=== PATIENT | male | born 1980 | race Caucasian/White ===

== ENCOUNTER 2023-06-29 08:03 | Emergency (ER) | payer OTHER, SELFPAY ==
[2023-06-29] VITALS (55 sets, daily range): BP systolic 122–161; BP diastolic 72–95; PULSE 62–93; RESP 10–24; TEMP 36.5; O2SAT 95–100; BMI 36.3
--- NOTE | 2023-06-29 08:21 | ECG_ITS ---
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
--- NOTE | 2023-06-29 08:21 | XR_ITS ---
The [address] [address] Patient Name: PATRICK ARMENTA MRN: [id number] date: 1980 Sex: M Assigned Patient Location: ER Current Patient Location: ED.MAIN Accession/Order Number: [id number] Exam Date: 06/29/2023 08:27 Report Date: 06/29/2023 08:45 At the request of: ERICK ZIMMERMAN Procedure: XR chest 1V EXAM: XR chest 1V HISTORY: chest pain COMPARISON: None TECHNIQUE: AP view of the chest was obtained with portable technique at 0826 hours. FINDINGS: Heart and mediastinal contours are unremarkable in appearance. No acute infiltrate or consolidations are seen. No obvious pneumothorax. Bony structures appear grossly intact. XR/XR chest 1V IMPRESSION: No acute process seen in the chest. Electronically authenticated by: LUCAS KOCH Date: 06/29/2023 08:45
--- NOTE | 2023-06-29 08:27 | ED.CHESTPAI1 ---
HPI - Chest Pain General Chief Complaint: Chest Pain Stated Complaint: CHEST PAIN Time Seen by Provider: 06/29/23 08:16 Source: patient Mode of arrival: walk-in History of Present Illness HPI narrative: Patient said that he woke suddenly - running late for his child's basketball this morning - and while running around the house to get ready he suddenly developed mid sternal chest pain with tingling down the left arm and some left jaw discomfort. He was also anxious. He said that the pain went away and then came back - this happened twice - since it began around 745am. On arrival to the ED it has resolved. He had some associated nausea but no dizziness or syncope. No shortness of breath. PMHx = HTN. He had a stress test about 5 years ago that was negative. Patient does not smoke. Mother had AMI in her 50s, had 4v CABG and had a stroke in her 50s. Related Data Home Medications Medication Instructions Recorded Confirmed lisinopril 10 mg tablet 10 mg PO DAILY 06/29/23 06/29/23 Allergies Allergy/AdvReac Type Severity Reaction Status Date / Time No Known Drug Allergies Allergy Verified 06/29/23 08:11 Exam Narrative Exam Narrative: Nurses notes and vital signs reviewed and patient is not hypoxic. afebrile General: Well-appearing and in no apparent distress. Skin: Warm, dry, no pallor noted. No rash. Head: Normocephalic, atraumatic. Neck: Supple, non-tender. Cardiovascular: Regular Rate and Rhythm without murmur, gallop or rub. Respiratory: No accessory muscle use or respiratory distress. Lungs are clear to auscultation, no wheezing, rales or rhonchi Chest Wall: no tenderness,. crepitus or subcutaneous emphysema Musculoskeletal: normal ROM, no calf or popliteal tenderness, no lower extremity edema/swelling GI: Abdomen is soft, non-distended. Normal bowel sounds. No tenderness to palpation. No rebound, guarding, or rigidity noted. Neurological: A&O x4. No cranial nerve dysfunction observed. No truncal ataxia. Moves all extremities. Sensation intact. Psychiatric: Cooperative and interactive. Normal mood and affect. Constitutional Vital Signs, click to edit/add: Last Vital Signs Temp 97.7 F 06/29/23 08:06 Pulse 81 06/29/23 13:01 Resp 18 06/29/23 13:01 BP 128/88 06/29/23 13:01 Pulse Ox 98 06/29/23 13:01 O2 Del Method Room Air 06/29/23 08:06 Course Vital Signs Vital signs: Vital Signs Temperature 97.7 F 06/29/23 08:06 Pulse Rate 68 06/29/23 08:06 Respiratory Rate 18 06/29/23 08:06 Blood Pressure 161/94 H 06/29/23 08:06 Pulse Oximetry 99 06/29/23 08:06 Oxygen Delivery Method Room Air 06/29/23 08:06 Temperature 97.7 F 06/29/23 08:06 Pulse Rate 81 06/29/23 13:01 Respiratory Rate 18 06/29/23 13:01 Blood Pressure 128/88 06/29/23 13:01 Pulse Oximetry 98 06/29/23 13:01 Oxygen Delivery Method Room Air 06/29/23 08:06 MDM - Chest Pain MDM Narrative Medical decision making narrative: Patient was placed on disability coordinator and EKG obtained. Blood drawn and sent for evaluation. CXR obtained. Patient was given 324mg aspirin orally. EKG normal. CBC and BMP unremarkable. Troponin and d-dimer negative. CXR without worrisome pathology. Call placed to Dr Coats to discuss the patient's case. He was made aware of the patient's negative first troponin and also of the patient's elevated 2nd troponin. Results and diagnosis discussed with the patient and he was given options for transfer - he prefers the closest facility - call placed to [facility] to discuss case with [place] [facility] He remains free of chest pain. I spoke with Dr Gillespie, who wanted me to speak with the senior vice president and chief information officer interventionalist before accepting the admission due to the patient's age and likely need for cardiac cath. I spoke with Dr Beverly and he approved transfer [place] [facility] and was made aware of Dr Gillespie's concerns. Patient accepted to [facility]. He is stable for transfer. Differential Diagnosis Differential diagnosis: Likely pneumothorax, stable angina, unstable angina pectoris, atypical chest pain, st elevation myocardial infarction, costochondritis, chest pain and biliary colic Medical Records Data Attestation: I reviewed the patient's medical records. Lab Data Attestation: I reviewed the patient's lab results. Labs: Lab Results 01/15/24 01/15/24 Range/Units 08:12 11:22 WBC 9.4 (4.0-11.0) 10^3/uL RBC 5.61 (4.70-6.10) 10^6/uL Hgb 16.4 (14.0-18.0) g/dL Hct 48.8 (42.0-54.0) % MCV 87.0 (80.0-94.0) fL MCH 29.2 (25.9-34.0) pg MCHC 33.6 (29.9-35.2) g/dL RDW 13.1 (11.0-15.0) % Plt Count 245 (150-450) 10^3/uL MPV 11.6 (9.5-13.5) fL Neut % (Auto) 39.2 L (43.0-75.0) % Lymph % (Auto) 41.7 (20.5-60.0) % Pope % (Auto) 12.7 H (1.7-12.0) % Eos % (Auto) 4.3 (0.9-7.0) % Baso % (Auto) 1.0 (0.2-2.0) % Neut # (Auto) 3.7 (1.4-6.5) 10^3/uL Lymph # (Auto) 3.9 H (1.2-3.8) 10^3/uL Pope # (Auto) 1.2 H (0.3-0.8) 10^3/uL Eos # (Auto) 0.4 (0.0-0.7) 10^3/uL Baso # (Auto) 0.1 (0.0-0.1) 10^3/uL Abs Immat Gran (auto) 0.10 H (0.00-0.03) 10^3/uL Imm/Tot Granulo (auto) 1.1 H (0.0-0.5) % PT 9.9 (9.0-11.6) sec INR 0.93 APTT 25.3 (22.3-36.2) sec D-Dimer 0.24 (<=0.59) mg/L FEU Sodium 139 (136-145) mmol/L Potassium 3.7 (3.5-5.1) mmol/L Chloride 103 (98-107) mmol/L Carbon Dioxide 27.8 (21.0-32.0) mmol/L Anion Gap 11.9 BUN 14.0 (7.0-18.0) mg/dL Creatinine 1.04 (0.70-1.30) mg/dL Est GFR ( Amer) >60 (>=60) Est GFR (Non-Af Amer) >60 (>=60) BUN/Creatinine Ratio 13.5 Glucose 132 H (74-106) mg/dL Calcium 9.0 (8.5-10.1) mg/dL Troponin I High Sens 9.4 285.7 H* (4.0-76.1) pg/mL Imaging Data Chest x-ray: Attestation: I have reviewed the pertinent imaging results. Radiologist's impression: ITS Impressions Chest X-Ray 06/29/23 08:21 IMPRESSION: No acute process seen in the chest. Electronically authenticated by: LUCAS KOCH Date: 06/29/2023 08:45 ECG Data Attestation: I personally reviewed and interpreted this ECG as follows: Interpretation: EKG interpretation: Emergency Department physician interpretation. Normal sinus rhythm at 67bpm. Normal axis, normal intervals and no ST segment elevation or depression. Normal EKG. Critical Care Time Critical Care Time Critical Care Time: Yes Total Critical Care Time: 75 Attestation: Critical Care Time: 75 minutes, critical care time is separate from any procedures that are performed. The following was considered in the determination of critical care but not limited to the level medical decision-making, intensive cardiac and/or respiratory monitor, frequent vital sign monitoring, evaluation of laboratory studies, evaluation of a radiographic studies, oxygen monitoring and constant monitoring. Discharge Plan Discharge Chief Complaint: Chest Pain Clinical Impression: Acute non-ST elevation myocardial infarction (NSTEMI), Chest pain Patient Disposition: [facility] Time of Disposition Decision: 12:33 Discharge Location: [facility]
[2023-06-29] MEDS: ASPIRIN 81 MG TAB.CHEW 324 MG PO (08:37)
[2023-06-29 08:42] LABS: Basophils Absolute Auto 0.1 10^3/uL (0.0-0.1); Eosinophils Absolute Auto 0.4 10^3/uL (0.0-0.7); Eosinophils Percent Auto 4.3 % (0.9-7.0); Hematocrit 48.8 % (42.0-54.0); Hemoglobin 16.4 g/dL (14.0-18.0); Immature Granulocytes Pct Auto 1.1 % (0.0-0.5); Lymphocytes Absolute Auto 3.9 10^3/uL (1.2-3.8); Lymphocytes Percent Auto 41.7 % (20.5-60.0); Mean Corpuscular HGB Conc 33.6 g/dL (29.9-35.2); Mean Corpuscular Hemoglobin 29.2 pg (25.9-34.0); Mean Platelet Volume 11.6 fL (9.5-13.5); Monocytes Absolute Auto 1.2 10^3/uL (0.3-0.8); Monocytes Percent Auto 12.7 % (1.7-12.0); Neutrophils Absolute Auto 3.7 10^3/uL (1.4-6.5); Neutrophils Percent Auto 39.2 % (43.0-75.0); Platelet Count 245 10^3/uL (150-450); Red Blood Count 5.61 10^6/uL (4.70-6.10); Red Cell Distribution Width 13.1 % (11.0-15.0); White Blood Count 9.4 10^3/uL (4.0-11.0)
[2023-06-29 09:01] LABS: D Dimer 0.24 mg/L FEU (<=0.59)
[2023-06-29 09:07] LABS: Anion Gap 11.9; BUN Creatinine Ratio 13.5; Carbon Dioxide 27.8 mmol/L (21.0-32.0); Chloride 103 mmol/L (98-107); Estimated GFR (African America >60 (>=60); Estimated GFR (Non-African Ame >60 (>=60); Glucose 132 mg/dL (74-106); Potassium 3.7 mmol/L (3.5-5.1); Sodium 139 mmol/L (136-145); Troponin I High Sensitivity 9.4 pg/mL (4.0-76.1)
[2023-06-29 12:23] LABS: Troponin I High Sensitivity 285.7 pg/mL (4.0-76.1)
[2023-06-29 12:45] LABS: INR 0.93; Partial Thromboplastin Time 25.3 sec (22.3-36.2); Prothrombin Time 9.9 sec (9.0-11.6)
[2023-06-29] MEDS: HEPARIN SODIUM (PORCINE) 5,000 UNIT/ML VIAL 4000 UNIT IV (12:52)
[2023-06-29] MEDS: HEPARIN SODIUM,PORCINE/D5W 25,000 UNIT/500 ML IV.SOLN 20 UNIT IV (12:53)
[2023-06-29 14:39] LABS: Troponin I High Sensitivity 252.5 pg/mL (4.0-76.1)
== END 2023-06-29 15:31 | disposition short-term general hospital (02) ==
PROVIDERS: Emergency Provider Emergency Medicine; PCP Family Medicine
DX: I21.4 Non-ST elevation (NSTEMI) myocardial infarction (principal); R07.9 Chest pain, unspecified; I10 Essential (primary) hypertension; Z79.899 Other long term (current) drug therapy
CPT/HCPCS: 36415; 71045; 80048; 84484; 85025; 85378; 85610; 85730; 93005; 96374; 99291; 99292; J1644

== ENCOUNTER 2023-10-21 10:15 | Outpatient (OUT) | payer OTHER, SELFPAY ==
--- OUTSIDE RECORDS SUMMARY | 2023-10-21 10:39 | XMS_ITS | CCD ---
Author Organization [facility] Care Team Providers Care Supervisor [employer] Department Name Role Phone MD Eloise Dubois Attending Provider [phone] NON STAFF Primary Care Provider Unavailabl e DO Rajeev Gray Attending Provider MARCO LISA Admitting Unavailable MARCO LISA Attending Unavailable DR Haider Newton Consulting Unavailable DR BENIGNO COATS Primary Care Unavailable MARCO LISA Consulting Unavailable MD Benigno Coats Primary Care Provider [phone] Rajeev Gray Unavailable Eloise Dubois Unavailable Denis Allen Unavailable MD Benigno Coats Primary Care Provider MD Denis Allen Attending Provider MD Benigno Coats Primary Care Provider DO Pillo Avila Admit Provider DO Pillo Avila Attending Provider VICTORIA Knight Other Provider Unavailable MD Jayce Beverly Other Provider MD Narendra Hassan Other Provider [phone] MD Hailey Russell Other Provider Hailey Russell Unavailable Benigno Coats MD Primary Care Provider Benigno Coats Primary Care Unavailable Denis Allen Admitting Unavailable Denis Allen Attending Unavailable Benigno Coats Primary Care Unavailable Hailey Russell Admitting Unavailable Hailey Russell Attending Unavailable Ita Knight Consulting Unavailable Benigno Coats Primary Care Unavailable Pillo Avila Admitting Unavailable Pillo Avila Attending Unavailable Jayce Beverly Consulting Unavailable Narendra Hassan Consulting Hailey Tabor Consulting Unavailable Medications Current Medications Medication Drug Class(es) Dates Sig (Normalized) Sig (Original) 24 hr metoprolol succinate 25 mg extended release oral tablet (4 sources) beta-Adrenergic Young Start: 06-30-2023 take 25 mg by mouth once daily Metoprolol Succinate Active 25 MG PO Daily June 30, 2023 12:00am take 1 tablet by ruddy th every twelve hours Metoprolol Tartrate 25 MG 1 tablet with food Orally Twice a day for 90 days Active Completed/Discontinued Medications Medication Drug Class(es) Dates Sig (Normalized) Sig (Original) amLODIPine 5 mg oral tablet (2 sources) Dihydropyridine Calcium Channel Young Start: 09-04-2023 take 1 tablet by mouth once daily amLODIPine (NORVASC) 5 mg tablet Take 1 tablet by mouth once daily. 90 tablet 3 09/04/2023 Active Comment on above: Take 1 tablet by ruddy th once daily. aspirin 81 mg oral tablet (8 sources) Platelet Aggregation Inhibitor, Nonsteroidal Anti-inflammatory Drug Start: 09-04-2023 take 1 capsule by mouth once daily aspirin 81 mg cap Take 81 mg by mouth once daily. 90 capsule 3 09/04/2023 Active Start: 06-30-2023 take 81 mg by mouth once daily Aspirin Active 81 MG PO Daily June 30, 2023 12:00am Comment on above: Take 81 mg by mouth once daily. atorvastatin 80 mg oral tablet (8 sources) HMG-CoA Reductase Inhibitor Start: take 1 tablet by mouth once daily atorvastatin (LIPITOR) 80 mg tablet Take 1 tablet by mouth once daily. 90 tablet 3 09/04/2023 Active Start: 06-30-2023 take 80 mg by mouth once daily in the evening Atorvastatin Active 80 MG PO Every evening June 30, 2023 12:00am Comment on above: Take 1 tablet by ruddy th once daily. clopidogrel 75 mg oral tablet (8 sources) P2Y12 Platelet Inhibitor Start: 09-04-2023 take 1 tablet by mouth once daily clopidogrel (PLAVIX) 75 mg tablet Take 1 tablet by mouth once daily. 90 tablet 3 09/04/2023 Active Start: 06-30-2023 take 1 tablet by ruddy th once daily Clopidogrel (Plavix) 75 mg tablet Active 75 MG PO Daily June 30, 2023 12:00am Comment on above: Take 1 tablet by ruddy once daily. 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 90 capsule 3 09/04/2023 Active Comment on above: Take 1 capsule by mo [facility] once daily. Ibuprofen (10 sources) Nonsteroidal Anti-inflammatory Drug Ibuprofen PRN Not-Taking/PRN Ibuprofen PRN Ac tive 24 hr isosorbide mononitrate 60 mg extended release oral tablet (7 sources) Nitrate Vasodilator Start: 09-04-2023 take 1 tablet by mouth once daily isosorbide mononitrate ER (IMDUR) 60 mg 24 hr tablet Take 1 tablet by mouth once daily. 90 tablet 3 09/04/2023 Active Start: 07-02-2023 take 1 tablet by ruddy th every twenty-four hours Isosorbide Mononitrate ER 30 MG 1 tablet in the morning Orally Once a day for 30 days Jun, Active take 1 tablet by ruddy th every twenty-four hours Isosorbide Mononitrate ER 60 MG 1 tablet in the morning Orally Once a day for 90 days Active Comment on above: Take 1 tablet by ruddy once daily. lisinopril 10 mg oral tablet (13 sources) Angiotensin Converting Enzyme Inhibitor Start: 09-04-2023 take 1 tablet by mouth once daily lisinopril (ZESTRIL) 10 mg tablet Take 1 tablet by mouth once daily. 90 tablet 3 09/04/2023 Active Start: 06-29-2023 take 10 mg by mouth at bedtime Lisinopril Active 10 MG PO Bedtime June 29, 2023 12:00am Comment on above: Take 1 tablet by ruddy once daily. nitroglycerin 0.4 mg sublingual tablet (8 sources) Nitrate Vasodilator Start: 09-04-2023 nitroglycerin sublingual (NITROQUICK) 0.4 mg SL tablet Dissolve 1 tablet under the tongue every 5 minutes as needed for chest pain. 25 tablet 5 09/04/2023 Active Start: 06-30-2023 Nitroglycerin Active 0.4 MG SUBLINGUAL Q5M June 30, 2023 12:00am Nitroglycerin 0. 4 MG as directed Sublingual as needed for chest pain Active Comment on above: Dissolve 1 tablet un chace the tongue every 5 minutes as needed for chest pain. triamcinolone acetonide 40 mg/ml injectable suspension (20 sources) Corticosteroid Start: 02-19-2023 Kenalog-40 Feb, 40 mg Start: 05-21-2022 Kenalog-40 May, 30 mg Start: 04-17-2020 Kenalog -40 mg Apr, 40 mg Problems Active Problems Problem Classification Problem Date Documented Da te Episodic/Chronic Acute myocardial infarction (9 sources) Myocardial infarction; Translations: [Non-ST elevation (NSTEMI) myocardial infarction] Onset: 06-29-2023 06-29-2023 Chronic Coronary atherosclerosis and other heart disease (8 sources) Coronary arteriosclerosis; Translations: [Atherosclerotic heart disease of anvik coronary artery with other forms of angina pectoris] Onset: 07-20-2023 07-20-2023 Chronic Disorders of lipid metabolism (6 sources) Hypercholesterolemia ; Translations: [Pure hypercholesterolemia , unspecified] Onset: 06-29-2023 06-30-2023 Chronic E Codes: Natural/environment (1 source) Overexertion from prolonged static or awkward postures, initial encounter; Translations: [OVEREXERT PROLNG STAT/AWK PST INIT] Onset: 05-29-2022 Episodic Essential hypertension (6 sources) Hypertensive disorder; Translations: [Essential (primary) hypertension] Onset: 06-29-2023 06-30-2023 Chronic Fracture of lower limb (4 sources) Displaced fracture of medial malleolus of left tibia, initial encounter for closed fracture; Translations: [Displaced bimalleolar fracture of left lower leg, initial encounter for closed fracture] Onset: 05-29-2022 Episodic Osteoarthritis (20 sources) Osteoarthritis of right knee joint; Translations: [Unilateral primary osteoarthritis, right knee] Chronic Other aftercare (1 source) Encounter for other specified aftercare; Translations: [Encounter for other specified aftercare] Onset: 09-07-2023 Episodic Other bone disease and musculoskeletal deformities (10 sources) Progressive avascular necrosis of lunate; Translations: [Kienbock's disease of adults] Chronic Other bone disease and musculoskeletal deformities (1 source) Kienbock's disease of adults Chronic Other non-traumatic joint disorders (3 sources) Pain in left ankle and joints of left foot; Translations: [PAIN IN LEFT ANKLE] Onset: 05-27-2022 Episodic Other non-traumatic joint disorders (1 source) Pain in left wrist Episodic Other non-traumatic joint disorders (1 source) Pain in right knee Episodic Other nutritional; endocrine; and metabolic disorders (3 sources) Obesity caused by energy imbalance; Translations: [Other obesity due to excess calories] Onset: 07-20-2023 07-20-2023 Chronic Residual codes; unclassified (3 sources) FH: premature coronary heart disease; Translations: [Family history of ischemic heart disease and other diseases of the circulatory system] Onset: 07-20-2023 07-20-2023 Episodic Unclassified (1 source) Unilateral primary osteoarthritis, right knee; Translations: [Unilateral primary osteoarthritis, right knee] Onset: 02-19-2023 Past or Other Problems Problem Classification Problem Date Documented Da te Episodic/Chronic Unclassified (2 sources) Myocardial infarction with coronary microvascular dysfunction I21.B Results Test Name Value Interpretation Reference Range Facility [facility] 09-04-2023 [facility] Letter Text Normal [facility] Maria Dolores 08-26-2023 EDI Telephone (JAYNA) ----- ADAM OSWALD ([id number]) 1980 M Date Time Provider Department 08/26/23 PILLO MOJICA During your visit today, we recorded the following information about you: uGillermina Reynoso 08/26/2023 2:35 PM Signed Call received from pt who called to report his medications had been marked as discontinued. Mr. Oswald informed he is in need of Rx refills. Upon further review when charts were , medications were not listed, INS information is missing. Spoke to Colette Lowry who will send message to HIM re: chart. Pt has jacklyn slot on hold w/ Dr. Mojica on 10/25 @ 10 am for 3 mo FU. 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] 07/20/2023 NSTEMI (non-ST elevated myocardial infarction) *07/20/2023 Primary hypertension [I10] 07/20/2023 Pure hypercholesterolemia [E78.00] 07/20/2023 Family history of early CAD [Z82.49] 07/20/2023 Class 2 obesity due to excess calories with bod*07/20/2023 Encounter Status:Closed by GUILLERMINA REYNOSO on 08/26/23 [facility] CNOVon 07-20-2023 CNOV Office Visit (CATHMN ) ----- ADAM OSWALD ([id number]) 1980 M Date Time Provider Department 07/20/23 8:30 AM PILLO MOJICA During your visit today, we recorded the following information about you: Pulse Blood pressure Weight Height 69/minute 129/73 115.5 kg 1.803 m Pillo Mojica MD 08/05/2023 2:22 PM Addendum [facility] [place] Charlee Rachel Department of Cardiovascular Medicine SECTION OF INTERVENTIONAL CARDIOLOGY OUTPATIENT VISIT DATE July 20, 2023 OUTPATIENT VISIT TYPE NEW PRIMARY CARE PHYSICIAN: Benigno Coats MD [address] [place] [phone] REFERRING PHYSICIAN: SELF CHIEF COMPLAINT: 2nd opinion Establish care HISTORY OF PRESENT ILLNESS: Mr. Oswald is a 42 year old male who presents today with chest pain, NSTEMI (MINOCA), presumptive diagnosis of coronary vasospasm. CRFs: lipids, HTN, FHx. 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 06/29/2023 - developed chest pain radiating to left arm after awakening in morning, lasting 2-3 minutes, then recurred multiple times over that morning. In ED, ECG unremarkable. hsTnI dominguez from 9.4 to 286 06/30/2013 - Echocardiogram at [facility]SH - LVEF 50-55%, normal wall motion, normal valves. 06/30/2023 - Cardiac catheterization at OSH (by my review of images): LM - short LAD - mild proximal ~20-30% stenosis LCX - mild irregularities RCA - dominant, mild irregularities LV - focal mild apical hypokinesia Given diagnosis of MINOCA presumably due to coronary spasm vs possible coronary thrombus. After hospital discharge, had labile BP and recurrent chest pain in morning. Medications adjusted, Imdur started at 30 mg daily, escalated to 90 mg daily. Amlodipine 5 mg started last week. Has had 7-8 episodes since home, always in morning between 4 am (awakens him from sleep) to 8 am, relieved promptly with SL TNG (within 1 minute). Has not had any episodes with physical activity - carrying groceries, walking on treadmill (1 mile over 20 minutes). Had not been exercising regularly. No caffeine, following diet. Taking Imdur at 4-6 am, metoprolol between 8-9 am and evening, lisinopril 6-7 pm, amlodipine qhs. BP running 100-115 in morning, 120-130 mm Hg in afternoon, 140-160s mm Hg in late afternoon/early evening. NURSING INTAKE: PMHX Myocardial infarction, HTN, HLP, FH of CAD , CARLO -oral appliance, GERD, h/o chewing tobacco No outside images Pt reports having a stress test @ 5 years ago due to heart aching Stress test negative He was placed on BP meds and those symptoms subsided 09/22/22 He reports he did not have a stress test at [facility] which is in his electronic records Stress echo Stress Echo 09/22/2022 Indication CP Summary This was a normal exercise stress test without evidence of stress induced ischemia. Prognosis is suggested to be good from this test ( functional capacity >/= 10 METs ). 06/29/2023 He woke up with chest pain- like ache with some SOB It subsided with rest but later reoccurred and radiated to left arm and face He presented to [facility] ED where it had subsided But reoccurred Per pt Troponin 285 max He was transferred to [facility] and underwent coronary angiogram Told 1 20% area in LAD He was told either a clot but more likely spasm He was placed on ASA, Plavix, NTG Sl, Imdur, toprol XL and Lipitor He had 1 episode prior to discharge ECG was normal Pain with relieved with NTG He comes here to get another opinion and to establish care and for evaluation After discharge he has noted HTN His Imdur and metoprolol were increased and Amlodipine was added He has had 8 episodes of chest pain since discharged usually occurring 4AM-8:30 AM has awakened him but most, occurs 5 minutes after walking He has started to exercise with no symptoms and is to start cardiac rehab He notes a little SOB and diaphoresis with these episodes He notes quick chest fluttering He denies lightheadness, syncope, CVA or TIa He denies asthma,a COPD He monitors hist BP since meds increased and running 105/55 to once after exercise 168/98 04/02/23 Chol 164 Tri 158 HDL 41 LDL 103 Diet / Nutrition: Heart healthy since the event Low Na 2000 mg salt Weight: decreased 12 lbs since Exercise: Walking 1 mile 5-7 days week PAST MEDICAL HISTORY Diagnosis Date Family history of early CAD HTN (hypertension) 2019 Mixed hyperlipidemia 06/2022 Myocardial infarction (HCC) 06/29/2023 CARLO (obstructive sleep apnea) oral appliance Past history of chewing tobacco use PAST SURGICAL HISTORY Procedure Laterality Date APPENDECTOMY SOCIAL HISTORY Social History Tobacco Use Smoking status: Never Smokeless tobacco: Former Types: Chew Quit date: 2002 Substance Use Topics Alcohol use: Yes Comment: 1-2 times monoth 3-6 drink (more content not included)... Normal [facility] A1C with Estimated Average G jocelyne 06-30-2023 Glucose [Mass/Vol] 117 mg/dL Normal [facility] Comment on above: Order Comment: DRAW ALL LABS AT 0600 PER VICTORIA CARRION Result Comment: PERF ORMED BY: [place] [address] PATHOLOGIST RAPID OUTSOLE STITCHER ANATOLY PARMAR M.D. Performed By: #### P TT, PT, CBC #### [facility] [address] HbA1c (Bld) [Mass fraction] 5.7 % High 4.3-5.6 [facility] Comment on above: Order Comment: DRAW ALL LABS AT 0600 PER VICTORIA CARRION Result Comment: Incr eased risk for diabetes: 5.7 - 6.4 diabetes: >6.4 glycemic control for adults with diabetes: <7.0 Performed By: #### P TT, PT, CBC #### [facility] [address] Activated partial thrombopla stin time (aPTT) in platelet poor plasma by coagulation aOrdered By: Pillo Avila on 06-30-2023 aPTT Coag (PPP) [Time] 48.1 s 25.1-36.5 [facility] Comment on above: A hematocrit value g reater than 55% may lead to inaccurate results in coagulation testing. Patients having hematocrit values >55% require a special collection tube for coagulation studies. Please contact the laboratory at [phone] for redraw instructions. Basophils Auto (Bld) [#/Vol] Ordered By: Pillo Avila on 06-30-2023 Basophils (Bld) [#/Vol] 0.0 10*3/uL 0.0-0.2 [facility] Basophils/100 WBC Auto (Bld) Ordered By: Pillo Avila on 06-30-2023 Basophils/100 WBC (Bld) 0.7 % . [facility] Blood Urea Nitrogenon 2023 Urea nitrogen [Mass/Vol] 16 mg/dL Normal 7-25 [facility] Comment on above: Performed By: #### P TT, PT, CBC #### [facility] [address] [place] [address] Carbon dioxide, total [Moles /volume] in Serum or PlasmaOrdered By: Hailey Russell on 06-30-2023 CO2 [Moles/Vol] 24.6 mmol/L 21.0-31.0 [facility] Chloride [Moles/volume] in S juaquin or PlasmaOrdered By: Hailey Russell on 06-30-2023 Chloride [Moles/Vol] 105 mmol/L 98-107 [facility] Cholesterol [Mass/volume] in Serum or PlasmaOrdered By: Pillo Avila on 06-30-2023 Cholesterol [Mass/Vol] 191 mg/dL 140-200 [facility] Comment on above: Chol less than 200 m g/dl low riskChol 201-239 mg/dl borderline riskChol 240 mg/dl and greater high risk Cholesterol in LDL Calc [Mas s/Vol]Ordered By: Pillo Avila on 06-30-2023 Cholesterol in LDL [Mass/Vol] 84 mg/dL 0-100 [facility] Comment on above: LDL ATP III CLASSIFI CATIONLDL less than 100 mg/dL OptimalLDL 100-129 mg/dL Near or above optimalLDL 130-159 mg/dL Borderline highLDL 160-189 mg/dL HighLDL greater than 189 mg/dL Very high Cholesterol in VLDL Calc [Ma ss/Vol]Ordered By: Pillo Avila on 06-30-2023 Cholesterol in VLDL [Mass/Vol] 76 mg/dL [facility] Complete Blood Count Auto Di ffon 06-30-2023 Basophils (Bld) [#/Vol] 0.0 10*3/uL Normal 0.0-0.2 [facility] Comment on above: Order Comment: DRAW ALL LABS AT 0600 PER VICTORIA CARRION Result Comment: PERF ORMED BY: [place] [address] PATHOLOGIST RAPID OUTSOLE STITCHER ANATOLY PARMAR M.D. Performed By: #### C BC, PTT, PT #### [facility] [address] [place] [address] [place] Basophils/100 WBC (Bld) 0.7 % Normal . [facility] Comment on above: Order Comment: DRAW ALL LABS AT 0600 PER VICTORIA CARRION Performed By: #### C BC, PTT, PT #### [facility] [address] [place] [address] Eosinophils (Bld) [#/Vol] 0.2 10*3/uL Normal 0.0-0.45 [facility] Comment on above: Order Comment: DRAW ALL LABS AT 0600 PER RN SHEYLA Performed By: #### C BC, PTT, PT #### [facility] [address] Eosinophils/100 WBC (Bld) 3.4 % Normal . [facility] Comment on above: Order Comment: DRAW ALL LABS AT 0600 PER RN SHEYLA Performed By: #### C BC, PTT, PT #### [address] Erythrocyte distribution width (RBC) [Ratio] 13.5 % Normal 12.0-14.8 [facility] Comment on above: Order Comment: DRAW ALL LABS AT 0600 PER RN SHEYLA Performed By: #### C BC, PTT, PT #### [address] Hematocrit (Bld) [Volume fraction] 45.0 % Normal 38.8-50.0 [facility] Comment on above: Order Comment: DRAW ALL LABS AT 0600 PER RN SHEYLA Performed By: #### C BC, PTT, PT #### [address] Hemoglobin (Bld) [Mass/Vol] 15.5 g/dL Normal 13.0-17.0 [facility] Comment on above: Order Comment: DRAW ALL LABS AT 0600 PER RN SHEYLA Performed By: #### C BC, PTT, PT #### [place] [address] [place] Lymphocytes (Bld) [#/Vol] 2.4 10*3/uL Normal 1.00-4.8 [facility] Comment on above: Order Comment: DRAW ALL LABS AT 0600 PER RN SHEYLA Performed By: #### C BC, PTT, PT #### [place] [address] [place] Lymphocytes/100 WBC (Bld) 36.1 % Normal . [facility] Comment on above: Order Comment: DRAW ALL LABS AT 0600 PER RN SHEYLA Performed By: #### C BC, PTT, PT #### [address] MCH (RBC) [Entitic mass] 30.0 pg Normal 27.5-35.2 [facility] Comment on above: Order Comment: DRAW ALL LABS AT 0600 PER RN SHEYLA Performed By: #### C BC, PTT, PT #### [address] MCV (RBC) [Entitic vol] 86.9 fL Normal 83.5-101 [facility] Comment on above: Order Comment: DRAW ALL LABS AT 0600 PER RN SHEYLA Performed By: #### C BC, PTT, PT #### [address] Mean Corpuscular HGB Conc 34.5 g/dL Normal 32.5-35.6 [facility] Comment on above: Order Comment: DRAW ALL LABS AT 0600 PER RN SHEYLA Performed By: #### C BC, PTT, PT #### [address] Monocytes (Bld) [#/Vol] 0.7 10*3/uL Normal 0.0-0.8 [facility] Comment on above: Order Comment: DRAW ALL LABS AT 0600 PER RN SHEYLA Performed By: #### C BC, PTT, PT #### [address] Monocytes/100 WBC (Bld) 10.1 % Normal . [facility] Comment on above: Order Comment: DRAW ALL LABS AT 0600 PER RN SHEYLA Performed By: #### C BC, PTT, PT #### [facility] [address] [place] [address] [place] Neutrophils (Bld) [#/Vol] 3.3 10*3/uL Normal 1.8-7.7 [facility] Comment on above: Order Comment: DRAW ALL LABS AT 0600 PER RN SHEYLA Performed By: #### C BC, PTT, PT #### [address] [place] [address] [place] Neutrophils/100 WBC (Bld) 49.7 % Normal . [facility] Comment on above: Order Comment: DRAW ALL LABS AT 0600 PER RN SHEYLA Performed By: #### C BC, PTT, PT #### [facility] [address] NRBC% 0.3 /100{WBC} Normal 0-0.5 [facility] Comment on above: Order Comment: DRAW ALL LABS AT 0600 PER RN SHEYLA Performed By: #### C BC, PTT, PT #### [facility] [address] Platelet mean volume (Bld) [Entitic vol] 9.7 fL Normal 6.6-10.1 [facility] Comment on above: Order Comment: DRAW ALL LABS AT 0600 PER RN SHEYLA Performed By: #### C BC, PTT, PT #### [place] [address] [place] Platelets (Bld) [#/Vol] 179 10*3/uL Normal 150-450 [facility] Comment on above: Order Comment: DRAW ALL LABS AT 0600 PER RN SHEYLA Performed By: #### C BC, PTT, PT #### [address] RBC (Bld) [#/Vol] 5.17 10*6/uL Normal 3.90-5.60 [facility] Comment on above: Order Comment: DRAW ALL LABS AT 0600 PER RN SHEYLA Performed By: #### C BC, PTT, PT #### [facility] [address] [place] [address] WBC (Bld) [#/Vol] 6.6 10*3/uL Normal 4.1-10.5 [facility] Comment on above: Order Comment: DRAW ALL LABS AT 0600 PER RN SHEYLA Performed By: #### C BC, PTT, PT #### [facility] [address] [place] [address] [place] Creatine Kinaseon 06-30-2023 CK [Catalytic activity/Vol] 48 U/L Normal 30-223 [facility] Comment on above: Performed By: #### P TT, PT, CBC #### [facility] [address] [place] [address] [place] CK [Catalytic activity/Vol] 51 U/L Normal [facility] Comment on above: Performed By: #### H S TROP, CK #### [facility] [address] [id number] [place] Creatine kinase [Enzymatic a ctivity/volume] in Serum or PlasmaOrdered By: Pillo Avila on 06-30-2023 CK [Catalytic activity/Vol] 48 U/L [facility] Creatinineon 06-30-2023 Creatinine [Mass/Vol] 0.95 mg/dL Normal 0.70-1.30 [facility] Comment on above: Performed By: #### P TT, PT, CBC #### [facility] [address] [place] [address] [place] Creatinine Clr Calc Pharmacy 136.39 Normal [facility] Comment on above: Result Comment: PERF ORMED BY: [place] [address] PATHOLOGIST RAPID OUTSOLE STITCHER ANATOLY PARMAR M.D. Performed By: #### P TT, PT, CBC #### [facility] [address] [place] [address] [place] GFR/1.73 sq M.predicted MDRD (S/P/Bld) [Vol rate/Area] mL/min/{1.73_m2} [facility] Comment on above: Performed By: #### P TT, PT, CBC #### [facility] [address] [place] [address] [place] Creatinine [Mass/volume] in Serum or PlasmaOrdered By: Hailey Russell on 06-30-2023 Creatinine [Mass/Vol] 0.95 mg/dL 0.70-1.30 [facility] ECG 12 lead ECGon 06-30-2023 ECG 12 lead ECG [facility] [address] [place] [address] [place] [address] Electrocardiograph Report Signed Patient: Adam Oswald MR#: [id number] 55 : 1980 Acct:[id number] Age/Sex: 42 / M ADM Date: 06/29/23 Loc: 4 Room: [address] [place] [address] Type: DIS IN Attending Dr: Pillo Avila DO Ordering Provider: Pillo Avila DO Date of Service: 06/30/23 ECG/ECG 12 lead ECG: chest pain Copies to: Test Reason : Blood Pressure : / mmHG Vent. Rate : 084 BPM Atrial Rate : 084 BPM P-R Int : 154 ms QRS Dur : 086 ms QT Int : 362 ms P-R-T Axes : -26 066 016 degrees QTc Int : 427 ms Poor data quality, interpretation may be adversely affected Normal sinus rhythm Normal ECG No previous ECGs available Confirmed by HIWOT VARGAS MD ([id number]) on 06/30/2023 6:01:33 PM Referred By: MB Electronically Signed By:HIWOT VARGAS MD Transcribed By: MUS Signed By Hiwot Vargas MD 0 06/30/23 1801 [facility] echo transthoracicon [facility] echo transthoracic [facility] [place] [address] Echocardiogram Signed Patient: Adam Oswald MR#: [id number] 55 : 1980 Acct:[id number] Age/Sex: 42 / M ADM Date: 06/29/23 Loc: Room: [address] [place] [address] Type: DIS IN Attending Dr: Pillo Avila DO Ordering Provider: Hailey Russell MD Date of Service: 06/30/23 [facility] echo transthoracic: NSTEMI Copies to: MD Hiwot Moran MD BSA: 2.5 m2 BP: 146/88 mmHg HR: 77 Reason For Study: NSTEMI History: HTN, HLD, Family History: CAD Interpretation Summary The left ventricular wall motion is normal. The left ventricular size and thickness are normal. Ejection Fraction = 50-55%. The LV ejection fraction is low normal . There is trace mitral regurgitation. There is no comparison study available. Procedure/Quality: A two-dimensional transthoracic echocardiogram with color flow and Doppler was performed. The study was technically good in quality. Left Ventricle: The left ventricular size and thickness are normal. Ejection Fraction = 50-55%. The LV ejection fraction is low normal . The left ventricular wall motion is normal. Left Atrium: The left atrium appears normal in size. Right Atrium: The right atrium appears normal in size. Right Ventricle: The right ventricular size, thickness and function are normal. Aortic Valve: The aortic valve is normal in structure and function. No aortic regurgitation is present. Mitral Valve: The mitral valve is normal in structure and function. There is trace mitral regurgitation. Tricuspid Valve: The tricuspid valve is normal in structure and function. No tricuspid regurgitation. Pulmonic Valve: The pulmonic valve is normal in structure and function. Arteries: The aortic root is normal size. Pericardium/Pleura: No pericardial effusion seen. There is no pleural effusion. IVC/Hepatic Veins: The inferior vena cava is normal in size, with a normal collapsibility index. Measurements with Normals IVSd: 0.77 cm (0.7-1.1 cm)LVIDd: 4.7 cm (3.7-5.4 cm) LVPWd: 0.86 cm (0.7-1.1 cm)LVIDs: 2.9 cm (2.3-3.6 cm) LA dimension: 3.0 cm (2.3-4.0 cm)Ao root diam: 3.3 cm(2.0-3.6 cm) asc Aorta Diam: 3.0 cm(2.1-3.4cm) Doppler with Normals LV V1 max: 104.5 cm/sec (0.7-1.7m/s)MV E max bruce: 66.8 cm/sec(0.8-1.3m/s) MV A max bruce: 77.1 cm/sec(0.0-0.0m/s) MV E/A: 0.87 (<1.5) MMode/2D Measurements Calculations RVDd: 2.7 cm FS: 37.5 % Ao root area: LVOT diam: 1.9 cm TAPSE: 2.1 cm EDV(Teich): 8.4 cm2 LVOT area: 3.0 cm2 RV S Bruce: 100.4 ml 12.4 cm/sec ESV(Teich): 32.5 ml EF(Teich): 67.6 % __ LVLd ap4: 8.1 cm SV(MOD-sp4): LAV(MOD-sp4): LA A2 area: 6.3 cm2 EDV(MOD-sp4): 38.5 ml 17.4 ml 65.9 ml LAV(MOD-sp2): LA A4 area: 8.6 cm2 LVLs ap4: 6.4 cm 10.0 ml LA length (vol): ESV(MOD-sp4): 3.2 cm 27.4 ml LA vol: 14.0 ml EF(MOD-sp4): 58.4 % LA vol index: 5.7 ml/m2 Doppler Measurements Calculations MV dec time: MV max PG: E/E' lat: 5.3 MV dec slope: 0.18 sec 14.0 mmHg E/E' med: 7.7 366.8 cm/sec2 __ Ao V2 max: LV V1 max PG: MR max bruce: TV max P.0 mmHg 126.0 cm/sec 4.4 mmHg 189.4 cm/sec Ao max P.4 mmHgLV V1 mean PG: MR max PG: Ao mean P.3 mmHg 14.4 mmHg 3.0 mmHg LV V1 mean: Ao V2 mean: 72.1 cm/sec 80.3 cm/sec LV V1 VTI: 18.7 cm Ao V2 VTI: 22.3 cm KATIE(I,D): 2.5 cm2 KATIE(V,D): 2.4 cm2 __ TR max bruce: 166.8 cm/sec TR max P.1 mmHg ___ Transcribed By: SCV Performed At: 06/30/23 1410 Signed By: Hiwot Vargas MD 06/30/23 1854 Normal [facility] Electrolyteson 06-30-2023 Anion gap [Moles/Vol] 12.5 mmol/L Normal 6.0-15.0 [facility] Comment on above: Performed By: #### P TT, PT, CBC #### [facility] [address] [place] [address] [place] Chloride [Moles/Vol] 105 mmol/L Normal 98-107 [facility] Comment on above: Performed By: #### P TT, PT, CBC #### [facility] [address] [place] [address] [place] CO2 [Moles/Vol] 24.6 mmol/L Normal 21.0-31.0 [facility] Comment on above: Performed By: #### P TT, PT, CBC #### [facility] [address] [place] [address] [place] Potassium [Moles/Vol] 4.1 mmol/L Normal 3.5-5.1 [facility] Comment on above: Performed By: #### P TT, PT, CBC #### [facility] [address] [place] [address] [place] Sodium [Moles/Vol] 138 mmol/L Normal 136-145 [facility] Comment on above: Performed By: #### P TT, PT, CBC #### [facility] [address] [place] [address] [place] Eosinophils Auto (Bld) [#/Vo l]Ordered By: Pillo Avila on 06-30-2023 Eosinophils (Bld) [#/Vol] 0.2 10*3/uL 0.0-0.45 [facility] Eosinophils/100 WBC Auto (Bl d)Ordered By: Pillo Avila on 06-30-2023 Eosinophils/100 WBC (Bld) 3.4 % . [facility] Erythrocyte distribution wid th Auto (RBC) [Ratio]Ordered By: Pillo Avila on 06-30-2023 Erythrocyte distribution width (RBC) [Ratio] 13.5 % 12.0-14.8 [facility] Glucose mean value [Mass/vol ume] in Blood Estimated from glycated hemoglobinOrdered By: Pillo Avila on 06-30-2023 Average glucose Estimated from glycated hemoglobin (Bld) [Mass/Vol] 117 mg/dL [facility] Hematocrit Auto (Bld) [Volum e fraction]Ordered By: Pillo Avila on 06-30-2023 Hematocrit (Bld) [Volume fraction] 45.0 % 38.8-50.0 [facility] Hemoglobin A1c percentageOrd ered By: Pillo Avila on 06-30-2023 HbA1c (Bld) [Mass fraction] 5.7 % 4.3-5.6 [facility] Comment on above: Increased risk for d iabetes: 5.7 - 6.4diabetes: >6.4glycemic control for adults with diabetes: <7.0 Hemoglobin [Mass/volume] in BloodOrdered By: Pillo Avila on 06-30-2023 Hemoglobin (Bld) [Mass/Vol] 15.5 g/dL 13.0-17.0 [facility] INR in Platelet poor plasma by Coagulation assayOrdered By: Pillo Avila on 06-30-2023 INR Coag (PPP) [Relative time] 1.1 {INR} [facility] Comment on above: INR Therapeutic Rang e A) Pre- and Peroperative OAT started two weeks before surgery. NOT HIP SURGERY: 1.5 - 2.5 HIP SURGERY: 2 - 3B) Primary and secondary prevention of venous THROMBOSIS: 2 - 3C) Active venous thrombosis, pulmonary embolismand prevention of recurrent venous thrombosis: 2 - 3D) Prevention of arterial thromboembolismincluding patients with mechanical heart valves: 3 - 4.5 Leukocytes [#/volume] correc coy for nucleated erythrocytes in Blood by Automated counOrdered By: Pillo Avila on 06-30-2023 WBC corrected for nucl RBC Auto (Bld) [#/Vol] 6.6 10*3/uL 4.1-10.5 [facility] Lipid Panelon 06-30-2023 Cholesterol [Mass/Vol] 191 mg/dL Normal 140-200 [facility] Comment on above: Order Comment: FASTI NG N DRAW ALL LABS AT 0600 PER VICTORIA CARRION Result Comment: Chol less than 200 mg/dl low risk Chol 201-239 mg/dl borderline risk Chol 240 mg/dl and greater high risk Performed By: #### P TT, PT, CBC #### [facility] [address] [place] [id number] [place] Cholesterol in HDL [Mass/Vol] 31 mg/dL Normal 23-92 [facility] Comment on above: Order Comment: FASTI NG N DRAW ALL LABS AT 0600 PER RN SHEYLA Result Comment: HDL CHOL ATP-III CLASSIFICATION Cardiovascular Risk HDL > or equal to 60 mg/dL LOW HDL < 40 mg/dL HIGH Performed By: #### P TT, PT, CBC #### [facility] [address] Cholesterol.total/Chol esterol in HDL [Mass ratio] 6.2 {ratio} Normal <5.0 [facility] Comment on above: Order Comment: FASTI NG N DRAW ALL LABS AT 0600 PER RN SHEYLA Result Comment: PERF ORMED BY: [place] [address] PATHOLOGIST RAPID OUTSOLE STITCHER ANATOLY PARMAR M.D. Performed By: #### P TT, PT, CBC #### [facility] [address] [place] [id number] [facility] LDL Cholesterol,Calculated 84 mg/dL Normal 0-100 [facility] Comment on above: Order Comment: FASTI NG N DRAW ALL LABS AT 0600 PER RN SHEYLA Result Comment: LDL ATP III CLASSIFICATION LDL less than 100 mg/dL Optimal LDL 100-129 mg/dL Near or above optimal LDL 130-159 mg/dL Borderline high LDL 160-189 mg/dL High LDL greater than 189 mg/dL Very high Performed By: #### P TT, PT, CBC #### [facility] [address] [place] [id number] [place] Triglyceride w/Reflex 381 mg/dL High 0-149 [facility] Comment on above: Order Comment: FASTI NG N DRAW ALL LABS AT 0600 PER RN SHEYLA Result Comment: TRIG ATP III CLASSIFICATION TRIG less than 150 mg/dL Normal TRIG 150-199 mg/dL Borderline high TRIG 200-500 mg/dL High TRIG greater than 500 mg/dL Very high Standard traceable to the Center for Disease Conrtrol and Prevention (CDC) test method. Performed By: #### P TT, PT, CBC #### [facility] [address] VLDL CHOLESTEROL 76 mg/dL Normal [facility] Comment on above: Order Comment: SCOTT Flores DRAW ALL LABS AT 0600 PER VICTORIA CARRION Performed By: #### P TT, PT, CBC #### [facility] [address] Lymphocytes Auto (Bld) [#/Vo l]Ordered By: Pillo Avila on 06-30-2023 Lymphocytes (Bld) [#/Vol] 2.4 10*3/uL 1.00-4.8 [facility] Lymphocytes/100 WBC Auto (Bl d)Ordered By: Pillo Avila on 06-30-2023 Lymphocytes/100 WBC (Bld) 36.1 % . [facility] MCH Auto (RBC) [Entitic mass ]Ordered By: Pillo Avila on 06-30-2023 MCH (RBC) [Entitic mass] 30.0 pg 27.5-35.2 [facility] MCHC Auto (RBC) [Mass/Vol]Or dered By: Pillo Avila on 06-30-2023 MCHC (RBC) [Mass/Vol] 34.5 g/dL 32.5-35.6 [facility] MCV Auto (RBC) [Entitic vol] Ordered By: Pillo Avila on 06-30-2023 MCV (RBC) [Entitic vol] 86.9 fL 83.5-101 [facility] Monocytes Auto (Bld) [#/Vol] Ordered By: Pillo Avila on 06-30-2023 Monocytes (Bld) [#/Vol] 0.7 10*3/uL 0.0-0.8 [facility] Monocytes/100 WBC Auto (Bld) Ordered By: Pillo Avila on 06-30-2023 Monocytes/100 WBC (Bld) 10.1 % . [facility] Neutrophils Auto (Bld) [#/Vo l]Ordered By: Pillo Avila on 06-30-2023 Neutrophils (Bld) [#/Vol] 3.3 10*3/uL 1.8-7.7 [facility] Neutrophils/100 WBC Auto (Bl d)Ordered By: Pillo Avila on 06-30-2023 Neutrophils/100 WBC (Bld) 49.7 % . [facility] No Panel InformationOrdered By: Hailey Russell on 06-30-2023 Estimated GFR (CKD-EPI) > 60.0 mL/Min [facility] Creatinine Clearance (Chem 136.39 [facility] Nucleated erythrocytes [Pres ence] in Blood by Automated countOrdered By: Pillo Avila on 06-30-2023 Nucleated RBC Auto Ql (Bld) 0.3 /100{WBC} 0-0.5 [facility] Partial Thromboplastin Timeo n 06-30-2023 aPTT Coag (Bld) [Time] 48.1 s High 25.1-36.5 [facility] Comment on above: Order Comment: DRAW ALL LABS AT 0600 PER VICTORIA CARRION Result Comment: A matocrit value greater than 55% may lead to inaccurate results in coagulation testing. Patients having hematocrit values >55% require a special collection tube for coagulation studies. Please contact the laboratory at [phone] for redraw instructions. PERFORMED BY: [place] [address] PATHOLOGIST RAPID OUTSOLE [employer]ITCHER ANATOLY PARMAR M.D. Performed By: #### P TT, PT, CBC #### [facility] [address] [place] [address] [facility] aPTT Coag (Bld) [Time] 35.7 s Normal 25.1-36.5 [facility] Comment on above: Result Comment: A he matocrit value greater than 55% may lead to inaccurate results in coagulation testing. Patients having hematocrit values >55% require a special collection tube for coagulation studies. Please contact the laboratory at [phone] for redraw instructions. PERFORMED BY: [place] [address] PATHOLOGIST RAPID OUTSOLE STITCHER ANATOLY PARMAR M.D. Performed By: #### P TT, PT, CBC #### [facility] [address] [place], [place] [id number] [facility] Platelet mean volume Auto (B ld) [Entitic vol]Ordered By: Pillo Avila on 06-30-2023 Platelet mean volume (Bld) [Entitic vol] 9.7 fL 6.6-10.1 [facility] Platelets Auto (Bld) [#/Vol] Ordered By: Pillo Avila on 06-30-2023 Platelets (Bld) [#/Vol] 179 10*3/uL 150-450 [facility] Potassium [Moles/volume] in Serum or PlasmaOrdered By: Hailey Russell on 06-30-2023 Potassium [Moles/Vol] 4.1 mmol/L 3.5-5.1 [facility] Prothrombin Time INRon 06-30 INR Coag (PPP) [Relative time] 1.1 {INR} Normal [facility] Comment on above: Order Comment: DRAW ALL LABS AT 0600 PER VICTORIA CARRION Result Comment: INR Therapeutic Range A) Pre- and Peroperative OAT started two weeks before surgery. NOT HIP SURGERY: 1.5 - 2.5 HIP SURGERY: 2 - 3 B) Primary and secondary prevention of venous THROMBOSIS: 2 - 3 C) Active venous thrombosis, pulmonary embolism and prevention of recurrent venous thrombosis: 2 - 3 D) Prevention of arterial thromboembolism including patients with mechanical heart valves: 3 - 4.5 Performed By: #### C BC, PTT, PT #### [facility] [address] [place] [address] [facility] PT Coag (PPP) [Time] 12.3 s Normal 9.0-12.9 [facility] Comment on above: Order Comment: DRAW ALL LABS AT 0600 PER VICTORIA CARRION Result Comment: A he matocrit value greater than 55% may lead to inaccurate results in coagulation testing. Patients having hematocrit values >55% require a special collection tube for coagulation studies. Please contact the laboratory at [phone] for redraw instructions. Performed By: #### C BC, PTT, PT #### [facility] [address] [place] [id number] [facility] Prothrombin time (PT)Ordered By: Pillo Avila on 06-30-2023 PT Coag (PPP) [Time] 12.3 s 9.0-12.9 [facility] Comment on above: A hematocrit value g reater than 55% may lead to inaccurate results in coagulation testing. Patients having hematocrit values >55% require a special collection tube for coagulation studies. Please contact the laboratory at [phone] for redraw instructions. RBC Auto (Bld) [#/Vol]Ordere d By: Pillo Avila on 06-30-2023 RBC (Bld) [#/Vol] 5.17 10*6/uL 3.90-5.60 [facility] Serum or plasma anion gap de terminationOrdered By: Hailey Russell on 06-30-2023 Anion gap [Moles/Vol] 12.5 mmol/L 6.0-15.0 [facility] Serum or plasma high density lipoprotein (HDL) cholesterol measurementOrdered By: Pillo Avila on 06-30-2023 Cholesterol in HDL [Mass/Vol] 31 mg/dL 23-92 [facility] Comment on above: HDL CHOL ATP-III CLA SSIFICATION Cardiovascular RiskHDL > or equal to 60 mg/dL LOWHDL < 40 mg/dL HIGH Serum or plasma total choles terol/high density lipoprotein (HDL) cholesterol mass ratOrdered By: Pillo Avila on 06-30-2023 Cholesterol.total/Chol esterol in HDL [Mass ratio] 6.2 {ratio} <5.0 [facility] Sodium [Moles/volume] in Ser um or PlasmaOrdered By: Hailey Russell on 06-30-2023 Sodium [Moles/Vol] 138 mmol/L 136-145 [facility] Triglyceride [Mass/volume] i n Serum or PlasmaOrdered By: Pillo Avila on 06-30-2023 Triglyceride [Mass/Vol] 381 mg/dL 0-149 [facility] Comment on above: TRIG ATP III CLASSIF ICATIONTRIG less than 150 mg/dL NormalTRIG 150-199 mg/dL Borderline highTRIG 200-500 mg/dL High TRIG greater than 500 mg/dL Very highStandard traceable to the Center for Disease Conrtrol and Prevention (CDC) test method. Troponin I High Sensitivityo n 06-30-2023 Troponin I High Sensitivity 22.8 pg/mL High 0.0-20.0 [facility] Comment on above: Result Comment: PERF ORMED BY: [place] [address] PATHOLOGIST RAPID [employer]SOLE STITCHER ANATOLY PARMAR M.D. Performed By: #### P TT, PT, CBC #### [facility] [address] [place] [address] Troponin I High Sensitivity 35.7 pg/mL High 0.0-20.0 [facility] Comment on above: Result Comment: PERF ORMED BY: [place] [address] PATHOLOGIST RAPID OUTSOLE STITCHER ANATOLY PARMAR M.D. Performed By: #### H S TROP, CK #### [address] Troponin I.cardiac [Mass/vol ume] in Serum or Plasma by Detection limit <= 0.01 ng/Ordered By: Pillo Avila on 06-30-2023 Troponin I.cardiac DL <= 0.01 ng/mL [Mass/Vol] 22.8 pg/mL 0.0-20.0 [facility] Urea nitrogen [Mass/volume] in Serum or PlasmaOrdered By: Hailey Russell on 06-30-2023 Urea nitrogen [Mass/Vol] 16 mg/dL 725 [facility] WBC Auto (Bld) [#/Vol]Ordere d By: Pillo Avila on 06-30-2023 WBC (Bld) [#/Vol] 6.6 10*3/uL 4.1-10.5 [facility] Complete Blood Count Auto Di ffon 06-29-2023 Basophils (Bld) [#/Vol] 0.1 10*3/uL Normal 0.0-0.2 [facility] Comment on above: Result Comment: PERF ORMED BY: [place] [address] PATHOLOGIST RAPID OUTSOLE STITCHER ANATOLY PARMAR M.D. Performed By: #### P TT, PT, CBC #### [facility] [address] [place] [address] [place] Basophils/100 WBC (Bld) 1.0 % Normal . [facility] Comment on above: Performed By: #### P TT, PT, CBC #### [facility] [address] Eosinophils (Bld) [#/Vol] 0.2 10*3/uL Normal 0.0-0.45 [facility] Comment on above: Performed By: #### P TT, PT, CBC #### [facility] [address] [place] [address] [place] Eosinophils/100 WBC (Bld) 2.2 % Normal . [facility] Comment on above: Performed By: #### P TT, PT, CBC #### [address] Erythrocyte distribution width (RBC) [Ratio] 14.0 % Normal 12.0-14.8 [facility] Comment on above: Performed By: #### P TT, PT, CBC #### [address] Hematocrit (Bld) [Volume fraction] 46.1 % Normal 38.8-50.0 [facility] Comment on above: Performed By: #### P TT, PT, CBC #### [address] Hemoglobin (Bld) [Mass/Vol] 16.0 g/dL Normal 13.0-17.0 [facility] Comment on above: Performed By: #### P TT, PT, CBC #### [place] [address] [place] Lymphocytes (Bld) [#/Vol] 2.2 10*3/uL Normal 1.00-4.8 [facility] Comment on above: Performed By: #### P TT, PT, CBC #### [place] [address] [place] Lymphocytes/100 WBC (Bld) 31.3 % Normal . [facility] Comment on above: Performed By: #### P TT, PT, CBC #### [facility] [address] [place] [address] [place] MCH (RBC) [Entitic mass] 30.2 pg Normal 27.5-35.2 [facility] Comment on above: Performed By: #### P TT, PT, CBC #### [address] MCV (RBC) [Entitic vol] 86.8 fL Normal 83.5-101 [facility] Comment on above: Performed By: #### P TT, PT, CBC #### [address] Mean Corpuscular HGB Conc 34.8 g/dL Normal 32.5-35.6 [facility] Comment on above: Performed By: #### P TT, PT, CBC #### [address] Monocytes (Bld) [#/Vol] 0.6 10*3/uL Normal 0.0-0.8 [facility] Comment on above: Performed By: #### P TT, PT, CBC #### [address] Monocytes/100 WBC (Bld) 9.1 % Normal . [facility] Comment on above: Performed By: #### P TT, PT, CBC #### [address] Neutrophils (Bld) [#/Vol] 4.0 10*3/uL Normal 1.8-7.7 [facility] Comment on above: Performed By: #### P TT, PT, CBC #### [address] Neutrophils/100 WBC (Bld) 56.4 % Normal . [facility] Comment on above: Performed By: #### P TT, PT, CBC #### [address] NRBC% 0.2 /100{WBC} Normal 0-0.5 [facility] Comment on above: Performed By: #### P TT, PT, CBC #### [address] Platelet mean volume (Bld) [Entitic vol] 9.9 fL Normal 6.6-10.1 [facility] Comment on above: Performed By: #### P TT, PT, CBC #### [address] Platelets (Bld) [#/Vol] 210 10*3/uL Normal 150-450 [facility] Comment on above: Performed By: #### P TT, PT, CBC #### [address] RBC (Bld) [#/Vol] 5.31 10*6/uL Normal 3.90-5.60 [facility] Comment on above: Performed By: #### P TT, PT, CBC #### [address] WBC (Bld) [#/Vol] 7.1 10*3/uL Normal 4.1-10.5 [facility] Comment on above: Performed By: #### P TT, PT, CBC #### [address] Creatine Kinaseon 06-29-2023 CK [Catalytic activity/Vol] 54 U/L Normal 30-223 [facility] Comment on above: Performed By: #### P TT, PT, CBC #### [address] Partial Thromboplastin Timeo n 06-29-2023 aPTT Coag (Bld) [Time] 32.5 s Normal 25.1-36.5 [facility] Comment on above: Result Comment: A he matocrit value greater than 55% may lead to inaccurate results in coagulation testing. Patients having hematocrit values >55% require a special collection tube for coagulation studies. Please contact the laboratory at [phone] for redraw instructions. PERFORMED BY: [place] [address] PATHOLOGIST RAPID OUTSOLE STITCHER ANATOLY PARMAR M.D. Performed By: #### P TT, PT, CBC #### [place] [id number] [facility] Prothrombin Time INRon 06-29 INR Coag (PPP) [Relative time] 1.0 {INR} Normal [facility] Comment on above: Result Comment: INR Therapeutic Range A) Pre- and Peroperative OAT started two weeks before surgery. NOT HIP SURGERY: 1.5 - 2.5 HIP SURGERY: 2 - 3 B) Primary and secondary prevention of venous THROMBOSIS: 2 - 3 C) Active venous thrombosis, pulmonary embolism and prevention of recurrent venous thrombosis: 2 - 3 D) Prevention of arterial thromboembolism including patients with mechanical heart valves: 3 - 4.5 Performed By: #### P TT, PT, CBC #### [address] PT Coag (PPP) [Time] 11.9 s Normal 9.0-12.9 [facility] Comment on above: Result Comment: A he matocrit value greater than 55% may lead to inaccurate results in coagulation testing. Patients having hematocrit values >55% require a special collection tube for coagulation studies. Please contact the laboratory at [phone] for redraw instructions. Performed By: #### P TT, PT, CBC #### [address] Troponin I High Sensitivityo n 06-29-2023 Troponin I High Sensitivity 88.9 pg/mL Off scale high 0.0-20.0 [facility] Comment on above: Result Comment: Crit ical Result : Called to and read back by: FLAVIA FIGUEROA at: 06/29/2023 19:34:47 by:[id number] PERFORMED BY: [place] [address] PATHOLOGIST RAPID OUTSOLE STITCHER ANATOLY PARMAR M.D. Performed By: #### P TT, PT, CBC #### [address] XR knee RT 2Von 02-19-2023 XR knee RT 2V [facility] [place] [address] [place] [address] XRay Report Signed Patient: Adam Oswald MR#: [id number] 55 : 1980 Acct:[id number] Age/Sex: 42 / M ADM Date: 02/19/23 Loc: [facility] Room: Type: [facility] Attending Dr: Denis Allen MD Copies to: Denis Allen MD Ordering Provider: Denis Allen MD Date of Service: 02/19/23 XR/XR knee RT 2V: Primary osteoarthritis of right knee 2 views RIGHT knee plain film COMPARISON: 04/17/20 HISTORY: RIGHT knee pain for 2 weeks ACUTE FINDINGS: None DEGENERATIVE CHANGE: Similar extensive medial compartment degeneration. Superior patellar enthesophyte. Mild degenerative subluxation. SOFT TISSUE FINDINGS: Unremarkable JOINT EFFUSION: None POSTOP CHANGES: None BONE MINERALIZATION: Adequate XR/XR knee RT 2V IMPRESSION: Similar extensive medial compartment degeneration. Impression dictated by: Elvis Guadarrama M.D.02/19/2023 12:24 PM Dictation Location: [place] [address] Transcribed By: [facility] 02/19/23 1224 Dictated By: Elvis Guadarrama DO 02/19/23 1219 Signed By: 02/19/23 1224 Normal [facility] XR ankle LT min 3V*on 2022 XR ankle LT min 3V* [facility] [employer] Other XR ankle LT min 3V* [facility] [employer] Other XR ankle LT min 3V* [address] [place] [address] [employer] Other XR ankle LT min 3V* [place], [place] [id number] [place] [address] [employer] Other XR ankle LT min 3V* XRay Report [facility]in Appointment Scheduler Other XR ankle LT min 3V* Signed [facility] [employer] Other XR ankle LT min 3V* Patient: Scott Oswald MR#: [id number] [facility] [employer] Other XR ankle LT min 3V* 57 [facility] [employer] Other XR ankle LT min 3V* : 1980 Acct:[id number] [employer] Other XR ankle LT min 3V* Age/Sex: 41 / M ADM Date: 07/23/22 [employer] Other XR ankle LT min 3V* Loc: SOXD Room: Type : [facility] [employer] Other XR ankle LT min 3V* Attending Dr: Rajeev Gray DO [employer] Other XR ankle LT min 3V* Copies to: Rajeev Gray, DO [employer] Other XR ankle LT min 3V* Ordering Provider: Andrew Gray DO [employer] Other XR ankle LT min 3V* Date of Service: 07/23/22 [employer] Other XR ankle LT min 3V* XR/XR ankle LT min 3V*: Closed bimalleolar fracture of left ankle with [employer] Other XR ankle LT min 3V* routine heali No [employer] Other XR ankle LT min 3V* LEFT ANKLE - 3 views [employer] Other XR ankle LT min 3V* CLINICAL DATA: Follo w-up bimalleolar fractures. [employer] Other XR ankle LT min 3V* COMPARISON: 3 and 05/27/2022 [employer] Other XR ankle LT min 3V* AP, lateral and obli que views were obtained. Irregular bony ossicle is again seen adjacent to the [employer] Other XR ankle LT min 3V* tip of the medial malleolus. This is unchanged. The bony spicule adjacent to the tip of the [employer] Other XR ankle LT min 3V* lateral malleolus ap pears to be fusing with the adjacent fibula. There is no new fracture or [employer] Other XR ankle LT min 3V* dislocation. The luis ar dome is intact. A plantar calcaneal spur is visualized. There is mild [employer] Other XR ankle LT min 3V* diffuse soft tissue swelling. [employer] Other XR ankle LT min 3V* X R/XR ankle LT min 3V* [employer] Other XR ankle LT min 3V* IMPRESSION: Nort Walk-in Appointment Scheduler Other XR ankle LT min 3V* STABLE ANKLE. No rt Walk-in Appointment Scheduler Other XR ankle LT min 3V* Impression dictated by: Luisa Triana M.D.07/23/2022 10:58 AM [employer] Other XR ankle LT min 3V* Dictation Location: RADIO-PC-10 [employer] Other XR ankle LT min 3V* Transcribed By: MADHU 07/23/22 1058 [employer] Other XR ankle LT min 3V* Dictated By: Luisa Triana MD 07/23/22 1056 [employer] Other XR ankle LT min 3V* Signed By: [employer] Other XR ankle LT min 3V* 07/23/22 1058 No rt Walk-in Appointment Scheduler Other XR ankle LT min 3V*on 2022 XR ankle LT min 3V* [facility] Connect[employer] Other XR ankle LT min 3V* [facility] [place] [employer] Other XR ankle LT min 3V* [address] [place] [address] [employer] Other XR ankle LT min 3V* [place] [address] [employer] Other XR ankle LT min 3V* XRay Report Nort Walk-in Appointment Scheduler Other XR ankle LT min 3V* Signed [employer] Other XR ankle LT min 3V* Patient: Scott Oswald MR#: [id number] [place] Walk-in Appointment Scheduler Other XR ankle LT min 3V* 57 [place] Walk-in Appointment Scheduler Other XR ankle LT min 3V* : 1980 Acct:[id number] [employer] Other XR ankle LT min 3V* Age/Sex: 41 / M ADM Date: 06/25/22 [employer] Other XR ankle LT min 3V* Loc: [facility] Room: Type : [facility] [employer] Other XR ankle LT min 3V* Attending Dr: Rajeev Gray DO [employer] Other XR ankle LT min 3V* Copies to: Rajeev Gray, [employer] Other XR ankle LT min 3V* Ordering Provider: Andrew Gray DO [employer] Other XR ankle LT min 3V* Date of Service: 06/25/22 [employer] Other XR ankle LT min 3V* XR/XR ankle LT min 3V*: Closed bimalleolar fracture of left ankle, [employer] Other XR ankle LT min 3V* initial encounter [employer] Other XR ankle LT min 3V* LEFT ANKLE - 3 views [employer] Other XR ankle LT min 3V* CLINICAL HISTORY: Follow-up left bimalleolar ankle fracture [employer] Other XR ankle LT min 3V* COMPARISON: Left ank le 05/28/2022 [employer] Other XR ankle LT min 3V* FINDINGS: [employer] Other XR ankle LT min 3V* The patient's bimall eolar fractures grossly unchanged alignment and healing compared to the prior [employer] Other XR ankle LT min 3V* study. Ankle mortise appears intact. Plantar spurring. [employer] Other XR ankle LT min 3V* X R/XR ankle LT min 3V* [employer] Other XR ankle LT min 3V* IMPRESSION: [email or web address] Other XR ankle LT min 3V* NO SIGNIFICANT CARNES E IN FRACTURE FINDINGS. [employer] Other XR ankle LT min 3V* Impression dictated by: Samuel Bui Jr., D.OBala06/25/2022 3:14 PM [employer] Other XR ankle LT min 3V* Dictation Location: [place] [address] [employer] Other XR ankle LT min 3V* Transcribed By: PWS 06/25/22 [facility] [employer] Other XR ankle LT min 3V* Dictated By: Samuel Bui Jr DO 06/25/22 [facility] [employer] Other XR ankle LT min 3V* Signed By: [employer] Other XR ankle LT min 3V* 06/25/22 1514 No rt Walk-in Appointment Scheduler Other XR ankle LT 2Von 05-28-2022 XR ankle LT 2V [facility] Walk-in Appointment Scheduler Other XR ankle LT 2V [facility] Walk-in Appointment Scheduler Other XR ankle LT 2V [address] [place] [address] Walk-in Appointment Scheduler Other XR ankle LT 2[place] [address] [facility] Walk-in Appointment Scheduler Other XR ankle LT 2V XRay Report [employer] Other XR ankle LT 2V Signed [employer] Other XR ankle LT 2V Patient: Scott Oswald MR#: [id number] [employer] Other XR ankle LT 2V 57 [employer] Other XR ankle LT 2V : 1980 Acct:[id number] [employer] Other XR ankle LT 2V Age/Sex: 41 / M ADM Date: 05/28/22 [employer] Other XR ankle LT 2V Loc: [facility] Room: Type : [facility] [employer] Other XR ankle LT 2V Attending Dr: Rajeev Gray DO [employer] Other XR ankle LT 2V Copies to: Rajeev Gray, [employer] Other XR ankle LT 2V Ordering Provider: Andrew Gray DO [employer] Other XR ankle LT 2V Date of Service: 05/28/22 [employer] Other XR ankle LT 2V XR/XR ankle LT 2V: Closed bimalleolar fracture of left ankle, initial [employer] Other XR ankle LT 2V encounter [employer] Other XR ankle LT 2V XR ankle LT 2V 05/28 12:02 PM [employer] Other XR ankle LT 2V SIGNS AND SYMPTOMS: [place] stress view of left ankle, left ankle pain [employer] Other XR ankle LT 2V PROTOCOL: Frontal gr avity stress view of the left ankle [employer] Other XR ankle LT 2V COMPARISON: 05/27/2022 [employer] Other XR ankle LT 2V FINDINGS: [employer] Other XR ankle LT 2V There is a bony frag ment separate from both the tip of the medial malleolus and lateral malleolus [employer] Other XR ankle LT 2V which may represent an avulsed fracture fragments. There is diffuse soft tissue swelling. The ankle [employer] Other XR ankle LT 2V mortise appears to b e grossly preserved. [employer] Other XR ankle LT 2V X R/XR ankle LT 2V [employer] Other XR ankle LT 2V IMPRESSION: [employer] Other XR ankle LT 2V Findings suggest tin y avulsed fracture fragments separate from the tip of the medial and lateral [employer] Other XR ankle LT 2V malleolus. [employer] Other XR ankle LT 2V Diffuse soft tissue swelling is noted. [employer] Other XR ankle LT 2V The ankle mortise ap pears to be grossly intact. [employer] Other XR ankle LT 2V Impression dictated by: Chuy Gordon M.D.05/28/2022 4:04 PM [employer] Other XR ankle LT 2V Dictation Location: [place] [address] [employer] Other XR ankle LT 2V Transcribed By: MADHU 05/28/22 [facility] [employer] Other XR ankle LT 2V Dictated By: Chuy Gordon II, MD 05/28/22 [facility] [employer] Other XR ankle LT 2V Signed By: [employer] Other XR ankle LT 2V 05/28/22 1604 [employer] Other XR wrist LT 2Von 05-21-2022 XR wrist LT 2V [facility] Walk-in Appointment Scheduler Other XR wrist LT 2V [facility] Walk-in Appointment Scheduler Other XR wrist LT 2V [address] [facility] Walk-in Appointment Scheduler Other XR wrist [place] 2[place] [address] No rt Walk-in Appointment Scheduler Other XR wrist LT 2V XRay Report [employer] Other XR wrist LT 2V Signed [employer] Other XR wrist LT 2V Patient: Scott Oswald MR#: [id number] [place] Walk-in Appointment Scheduler Other XR wrist LT 2V 57 [employer] Other XR wrist LT 2V : 1980 Acct:[id number] [employer] Other XR wrist LT 2V Age/Sex: 41 / M ADM Date: 05/21/22 [employer] Other XR wrist LT 2V Loc: SOXD Room: Type : [facility] [employer] Other XR wrist LT 2V Attending Dr: Diana Dubois MD [employer] Other XR wrist LT 2V Copies to: Eloise Dubois MD [employer] Other XR wrist LT 2V Ordering Provider: Eloise Dubois MD [employer] Other XR wrist LT 2V Date of Service: 05/21/22 [employer] Other XR wrist LT 2V XR/XR wrist LT 2V: Primary osteoarthritis, left wrist [employer] Other XR wrist LT 2V [address] ain film [employer] Other XR wrist LT 2V COMPARISON:06/17/19 N [employer] Other XR wrist LT 2V HISTORY:LEFT wrist pain [employer] Other XR wrist LT 2V Increased sclerosis of the scaphoid redemonstrated. Well-corticated bone density distal to the tip [employer] Other XR wrist LT 2V of the radial styloi d present. Similar degenerative changes. [employer] Other XR wrist LT 2V X R/XR wrist LT 2V [employer] Other XR wrist LT 2V IMPRESSION:Similar degeneration. Similar increased sclerosis of the scaphoid [employer] Other XR wrist LT 2V Impression dictated by: Elvis Guadarrama M.D.05/21/2022 2:35 PM [employer] Other XR wrist LT 2V Dictation Location: [place] [address] [employer] Other XR wrist LT 2V Transcribed By: MADHU 05/21/22 [facility] [employer] Other XR wrist LT 2V Dictated By: Murray Guadarrama DO 05/21/22 [facility] [employer] Other XR wrist LT 2V Signed By: [place] [employer] Other XR wrist LT 2V 05/21/22 [facility] [email or web address] Other Vital Signs Date Time Vital Sign Value Performing Clinician Facility 07-07-2023 14:20-0500 Body height 182.88 cm Hailey Russell Other [employer] Other 07-07-2023 14:20-0500 Body mass index (BMI) [Ratio] 34.04 kg/m2 Hailey Russell Other [employer] Other 07-07-2023 14:20-0500 Body weight 113.85 kg Hailey Russell Other [facility] [employer] Other 07-07-2023 14:20-0500 Diastolic blood pressure 78 mm[Hg] Hailey Russell Other [employer] Other 07-07-2023 14:20-0500 SaO2% (BldA) [Mass fraction] 98 % Hailey Russell Other [facility] [employer] Other 07-07-2023 14:20-0500 Systolic blood pressure 126 mm[Hg] Hailey Russell Other [facility] [employer] Other 06-30-2023 15:35-0500 Diastolic blood pressure 77 mm[Hg] MD Benigno Coats Work Phone: [facility] 06-30-2023 15:35-0500 Heart rate 70 /min MD Benigno Coats Work Phone: [facility] 06-30-2023 15:35-0500 Respiratory rate 16 /min MD Benigno Coats Work Phone: [facility] 06-30-2023 15:35-0500 SaO2% (BldA) [Mass fraction] 98 % MD Benigno Coats Work Phone: [facility] 06-30-2023 15:35-0500 Systolic blood pressure 136 mm[Hg] MD Benigno Coats Work Phone: [facility] 06-30-2023 07:31-0500 Body temperature 97.9 [degF] MD Benigno Coats Work Phone: [facility] 06-30-2023 06:00-0500 Body weight 130 kg MD Benigno Cotas Work Phone: [facility] 06-29-2023 16:32-0500 Body height 180.34 cm MD Benigno Coats Work Phone: [facility] 02-19-2023 08:15-0400 Body height 182.88 cm Denis Olexa Other [employer] Other 02-19-2023 08:15-0400 Body mass index (BMI) [Ratio] 31.87 kg/m2 Denis Olexa Other [employer] Other 02-19-2023 08:15-0400 Body weight 106.6 kg Denis Olexa Other [employer] Other 07-23-2022 09:45-0500 Body height 182.88 cm Rajeev Gray Other [employer] Other 07-23-2022 09:45-0500 Body mass index (BMI) [Ratio] 31.87 kg/m2 Rajeev Marina Other [employer] Other 07-23-2022 09:45-0500 Body weight 106.6 kg Rajeev Marina Other [employer] Other 05-28-2022 12:30-0500 Body height 182.88 cm Rajeev Marina Other [employer] Other 05-28-2022 12:30-0500 Body mass index (BMI) [Ratio] 31.87 kg/m2 Rajeev Marina Other [employer] Other 05-28-2022 12:30-0500 Body weight 106.6 kg Rajeev Marina Other [employer] Other Encounters Encounter Date Encounter Type Care Provider Facility Start: 09-07-2023 ambulatory Benigno Coats Facility: [facility] Start: 09-04-2023 Orders Only Pillo main MD Work Phone: Cardiology Comment on above: 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) (Primary Dx) Start: 08-26-2023 Telephone encounter Pillo doshi MD Work Phone: Cardiology Comment on above: Appointment; Patient Question Start: 07-17-2023 End: 07-17-2023 ambulatory Hailey Drew Other [employer] Other Start: 07-17-2023 Telephone encounter Hailey BERGER [facility] Start: 07-10-2023 End: 07-10-2023 ambulatory Hailey Drew Other [employer] Other Start: 07-10-2023 Telephone encounter Hailey BERGER [facility] Start: 07-07-2023 End: 07-07-2023 ambulatory Hailey Drew Other [employer] Other Start: 07-07-2023 Office outpatient visit 25 minutes Hailey Russell [facility] Start: 07-03-2023 End: 07-03-2023 ambulatory Hailey Drew Other [employer] Other Start: 07-03-2023 Telephone encounter Hailey BERGER [facility] Start: 07-02-2023 End: 07-02-2023 ambulatory Hailey Drew Other [employer] Other Start: 07-02-2023 Telephone encounter Hailey BERGER [facility] Start: 06-29-2023 End: 06-30-2023 [facility] and management of [facility] Start: 06-29-2023 End: 06-30-2023 Evaluation and management of inpatient MD Benigno Coats Work Phone: [facility] Work Phone: Start: 02-19-2023 Office outpatient visit 15 minutes Denis Allen [facility] Start: 02-19-2023 End: 02-19-2023 ambulatory MD Benigno Coats Work Phone: [facility] [employer] Other Start: 02-19-2023 End: 02-19-2023 Patient encounter procedure MD Benigno Coats Work Phone: [facility] Start: 07-23-2022 Postop follow up vis it related to original px Rajeev Gray [facility] Start: 07-23-2022 End: 07-23-2022 ambulatory NON STAFF [facility] Work Phone: Start: 07-23-2022 End: 07-23-2022 Patient encounter procedure MD lEoise Dubois Work Phone: [facility] Start: 06-25-2022 Postop follow up vis it related to original px Rajeev Gray [facility] Start: 06-25-2022 End: 06-25-2022 ambulatory NON STAFF [facility] Work Phone: Start: 06-25-2022 End: 06-25-2022 Patient encounter procedure MD Eloise Dubois Work Phone: [facility] Start: 05-28-2022 FQ visit new patient Rajeev Gray [facility] Start: 05-28-2022 End: 05-28-2022 ambulatory NON STAFF [facility] Work Phone: Start: 05-28-2022 End: 05-28-2022 Patient encounter procedure MD Eloise Dubois Work Phone: [facility] Start: 05-27-2022 End: 05-27-2022 ambulatory MARCO SLOAN Facility: Start: 05-21-2022 Office outpatient visit 15 minutes [facility] Start: 05-21-2022 End: 05-21-2022 ambulatory MD Eloise Dubois Work Phone: [facility] Work Phone: Start: 05-21-2022 End: 05-21-2022 Patient encounter procedure MD Eloise Dubois Work Phone: [facility] Procedures Date Procedure Procedure Detail Performing Clinician Start: 06-30-2023 CL [facility] & COR Angio MD Delbert Coats Work Phone: Start: 06-30-2023 MD Benigno Coats Work Phone: Start: 02-19-2023 X-ray of right knee MD Benigno Coats Work Phone: Start: 07-23-2022 X-ray of left ankle MD Eloise Dubois Work Phone: Start: 06-25-2022 X-ray of left ankle MD Eloise Dubois Work Phone: Start: 05-28-2022 X-ray of left ankle MD Eloise Dubois Work Phone: Start: 05-21-2022 Plain X-ray of left wrist MD Eloise Dubois Work Phone: Plan of Treatment Date Care Activity Detail Author Start: 07-20-2024 BP Controlled (<130/80) BP Controlle d (<130/80) [facility] Start: 09-04-2023 End: 12-04-2023 Lipid 1996 panel - Serum or Plasma LIPID PANEL BASIC Lab Routine 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) Expected: 09/04/2023, Expires: 12/04/2023 [facility] Work Phone: Comment on above: Expected: 09/04/2023 , Expires: 12/04/2023 Start: 06-30-2023 [facility] Start: 06-29-2023 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 [facility] Start: 06-29-2023 Hospital admission [facility] Start: 06-15-2023 Depression Assessment Depression Ass essment [facility] Start: 02-13-2023 Covid-19 Vaccine ( season) Covid-19 Vaccine ( season) [facility] Start: 02-13-2023 Influenza vaccination Influenza Vacc ine (#1) [facility] Start: 2013 Lipid panel Lipid Screening [facility] Start: 1997 Hepatitis B Vaccine (1 of 3 - 19+ 3-dose series) Hepatitis B Vaccine (1 of 3 - 19+ 3-dose series) [facility] Start: 1997 Urine microalbumin profile DTaP,Tdap,Td Vaccine (1 - Tdap) [facility] Start: 1996 Annual PCP Team 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 Inspector maury Disease Visit Annual PCP Team Chronic Disease Visit [facility] Start: 1996 Hepatitis B surface antibody level LDL Cholesterol [facility] Start: 1996 Hepatitis C screening Hepatitis C Sc reening [facility] Start: 1996 HIV screening HIV Screening [facility] Start: 1984 Pneumococcal vaccination Pneumococcal Vaccine (1 of 2 - PCV) [facility] Patient referral [facility] Work Phone: [facility] Payers Date Payer Category Payer Self-pay [id number] 2018 Unknown MMO MMO [employer] PPO [id number] 2018-Present [phone] [address] [place] [address] PPO [id number] 1978 Unknown [id number] 1959 Unknown [id number] Unknown MMO [employer] [id number] Unknown [id number] Unknown [id number] Unknown [id number] Social History Date Type Detail Facility Tobacco smoking status NHIS Unknown if ever smoked [facility] Work Phone: Start: 1980 Sex Assigned At Male F [facility] Start: 08-03-2023 Sex Assigned At [place] Walk-in Appointment Scheduler Other Start: 06-30-2023 End: 08-03-2023 Tobacco smoking status NHIS Never smoked tobacco (finding) [facility] Start: 08-03-2023 Tobacco use and exposure Former smokeless tobacco user [facility] End: 06-15-2002 History of tobacco use Chews Tobacco [facility] Start: 08-03-2023 Alcohol intake Current drinke r of alcohol (finding) [facility] Start: 08-03-2023 History of Social function [facility] National Score (1-100), lower number is lower risk 25 [facility] Start: 08-03-2023 Alcohol Comment 1-2 times mono th 3-6 drinks [facility] Start: 1980 Sex Assigned At Not on file [facility] Goals Date Patient Goal Desired Activity /State Functional Status Date Assessment Result Facility 06-30-2023 Functional status Patient at Baseline [facility] Work Phone: Mental Status Date Assessment Result Facility 06-30-2023 Cognitive function Cognitive Sta tus Patient at Baseline [facility] Work Phone: Clinical Notes 05-21-2022 to 08-26-2023 Telephone Encounter - Guillermina Reynoso - 08/26/2023 2:18 PM EDT Note Date & Type Note Facility 08-26-2023 Miscellaneous Notes Call received from pt who called to report his medications had been marked as discontinued. Mr. Oswald informed he is in need of Rx refills. Upon further review when charts were , medications were not listed, INS information is missing. Spoke to Colette Lowry who will send message to HIM re: chart. Pt has jacklyn slot on hold w/ Dr. Mojica on 10/25 @ 10 am for 3 mo FU. Guillermina documented in this encounter [facility] 07-20-2023 Note HNO ID: [id number] Author: PILLO MOJICA MD Service: ? Author Type: Physician Type: Progress Notes Filed: 08/05/2023 14:22 Note Text: [facility] [place] Charlee Rachel Department of Cardiovascular Medicine SECTION OF INTERVENTIONAL CARDIOLOGY OUTPATIENT VISIT DATE July 20, 2023 OUTPATIENT VISIT TYPE NEW PRIMARY CARE PHYSICIAN: Benigno Coats MD [address] [place] [phone] REFERRING PHYSICIAN: SELF CHIEF COMPLAINT: 2nd opinion Establish care HISTORY OF PRESENT ILLNESS: Mr. Oswald is a 42 year old male who presents today with chest pain, NSTEMI (MINOCA), presumptive diagnosis of coronary vasospasm. CRFs: lipids, HTN, FHx. 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 06/29/2023 - developed chest pain radiating to left arm after awakening in morning, lasting 2-3 minutes, then recurred multiple times over that morning. In ED, ECG unremarkable. hsTnI dominguez from 9.4 to 286 06/30/2013 - Echocardiogram at OSH - LVEF 50-55%, normal wall motion, normal valves. 06/30/2023 - Cardiac catheterization at OSH (by my review of images): LM - short LAD - mild proximal ~20-30% stenosis LCX - mild irregularities RCA - dominant, mild irregularities LV - focal mild apical hypokinesia Given diagnosis of MINOCA presumably due to coronary spasm vs possible coronary thrombus. After hospital discharge, had labile BP and recurrent chest pain in morning. Medications adjusted, Imdur started at 30 mg daily, escalated to 90 mg daily. Amlodipine 5 mg started last week. Has had 7-8 episodes since home, always in morning between 4 am (awakens him from sleep) to 8 am, relieved promptly with SL TNG (within 1 minute). Has not had any episodes with physical activity - carrying groceries, walking on treadmill (1 mile over 20 minutes). Had not been exercising regularly. No caffeine, following diet. Taking Imdur at 4-6 am, metoprolol between 8-9 am and evening, lisinopril 6-7 pm, amlodipine qhs. BP running 100-115 in morning, 120-130 mm Hg in afternoon, 140-160s mm Hg in late afternoon/early evening. NURSING INTAKE: PMHX Myocardial infarction, HTN, HLP, FH of CAD , CARLO -oral appliance, GERD, h/o chewing tobacco No outside images Pt reports having a stress test @ 5 years ago due to heart aching Stress test negative He was placed on BP meds and those symptoms subsided 09/22/22 He reports he did not have a stress test at [facility] which is in his electronic records Stress echo Stress Echo 09/22/2022 Indication CP Summary This was a normal exercise stress test without evidence of stress induced ischemia. Prognosis is suggested to be good from this test ( functional capacity >/= 10 METs ). 06/29/2023 He woke up with chest pain- like ache with some SOB It subsided with rest but later reoccurred and radiated to left arm and face He presented to OSH ED where it had subsided But reoccurred Per pt Troponin 285 max He was transferred to [facility] and underwent coronary angiogram Told 1 20% area in LAD He was told either a clot but more likely spasm He was placed on ASA, Plavix, NTG Sl, Imdur, toprol XL and Lipitor He had 1 episode prior to discharge ECG was normal Pain with relieved with NTG He comes here to get another opinion and to establish care and for evaluation After discharge he has noted HTN His Imdur and metoprolol were increased and Amlodipine was added He has had 8 episodes of chest pain since discharged usually occurring 4AM-8:30 AM has awakened him but most, occurs 5 minutes after walking He has started to exercise with no symptoms and is to start cardiac rehab He notes a little SOB and diaphoresis with these episodes He notes quick chest fluttering He denies lightheadness, syncope, CVA or TIa He denies asthma,a COPD He monitors hist BP since meds increased and running 105/55 to once after exercise 168/98 04/02/23 Chol 164 Tri 158 HDL 41 LDL 103 Diet / Nutrition: Heart healthy since the event Low Na 2000 mg salt Weight: decreased 12 lbs since Exercise: Walking 1 mile 5-7 days week PAST MEDICAL HISTORY Diagnosis Date Family history of early CAD HTN (hypertension) 2019 Mixed hyperlipidemia 06/2022 Myocardial infarction (HCC) 06/29/2023 CARLO (obstructive sleep apnea) oral appliance Past history of chewing tobacco use PAST SURGICAL HISTORY Procedure Laterality Date APPENDECTOMY SOCIAL HISTORY Social History Tobacco Use Smoking status: Never Smokeless tobacco: Former Types: Chew Quit date: 2002 Substance Use Topics Alcohol use: Yes Comment: 1-2 times monoth 3-6 drinks Drug use: Never FAMILY HISTORY Problem Relation Age of Onset other (CVA) Mother 62 other (Myocardial infarction) Mother 55 2nd [place] CABG age 63 No Known Problems Father other (Myocardial infarction) Maternal Uncle 55 coronary stent other (Myocardial (more content not included)... [facility] 07-17-2023 Evaluation note Encounter Date Diagnosis Assessment Notes Jul, Myocardial infarction with coronary microvascular dysfunction (ICD-10 - I21.B) [facility] Other 01-23-2024 Evaluation note* Encounter Date Diagnosis Assessment Notes Treatment Notes Treatment Clinical Notes Jun, Myocardial infarction with coronary microvascular dysfunction (ICD-10 - I21.B) Mr. Oswald is a 42 yoM with PMH of HTN, Morbid obesity, HLD who was recently admitted to [facility] with chest pressure and was found to have NSTEMI. LHC showed a diffuse eccentric plaque of up to 20-30% luminal diameter in the proximal and mid vessel. The remainder of the LAD showed diffuse luminal irregularities. He was diagnosed with MINOCA with likely microthrombotic source. Assessment: Myocardial Infarction with Non Obstructive Coronaries likely due to vasospasm. HTN HLD Morbid obesity Plan: - Continue DAPT- ASA+Plavix for at least 1 year - Continue Imdur 60mg daily- will send in a prescription. - Lipitor 80mg daily; Lopressor 25 mg BID; Lisinopril 10mg daily. - Will send referral to cardiac rehab. - Discussed aggressive risk factor modification at lenght to prevent further progression of CAD including heart healthy diet- avoiding sugar sweetened beverages and incorporating excercise into daily regimen. - Follow up in 1 month [facility] Other [id number] [facility]01-16-2024 Consult note Author Hailey Russell [facility] June 30, 2023 12:06pm Note Date/Time June 30, 2023 1 1:42am [facility] [address] [place] [address] Cardiology Consult Note Signed Patient: Adam Oswald MR#: [id number] : 1980 Acct:[id number] Age/Sex: 42 / M Adm Date: 4 Loc: Room: [address] [place] [address] Type: ADM IN Attending Dr: Pillo Avila DO Copies to: MD Hailey Quinn MD Michael R. Frings, ~ Cardiology HPI History of Present Illness Consult Date: 06/30/23 Reason for Consult: NSTEMI HPI: Mr. Oswald is a 42 year old male with PMH of HTN, Morbid obesity and HLD who presents as a transfer from [place] [facility] with NSTEMI. He reports having 8/10 retrosternal chest pressure that started yesterday morning while preparing his daughter to go to a basketball game. It was non exertional and radiating to leftarm and left jaw. Associated with diaphoresis, shortness of breath, nausea and light headedness. He presented to [place] [facility] where he received ASA and NTG withrelief. EKG showed normal sinus rhythm without ischemic changes. Initial troponin was 9.4 and trended up to 285. He was started on Heparin gtt for NSTEMIand transferred to [facility] for further management. While here, troponin trended down to 88-->35-->22. Pt was relatively chest pain free until this am when he had another episode of chest pain that relieved with NTG. Repeat EKG showed TWI in lead III He denies similar symptoms in the past. He has had a treadmill stress test a fewyears ago that was negative. He denies tobacco, alcohol or ilicit drug use. Has family hx of premature CAD in mother and maternal uncles. Review of Systems Review of Systems All other systems reviewed & are negative unless noted below or in HPI [facility] Medical History (Updated 06/30/23 @ 11:39 by Hailey Russell MD) Hypercholesteremia Hypertension Social History Smoking Status: Never smoker Meds Medications and Allergies Allergies No Known Allergies Allergy (Verified 06/29/23 17:28) Home Medications lisinopril 10 mg tablet 10 mg PO HS 06/29/23 [History Confirmed 06/29/23] Exam Physical Exam Vital Signs: Temp Pulse Resp BP Pulse Ox O2 Del Method 97.9 F 80 16 146/88 H 98 Room Air 06/30/23 07:31 06/30/23 08:17 06/30/23 07:31 06/30/23 08:17 06/30/23 07:31 06/30/23 07:35 Narrative: GEN: AAOx3. No acute distress. Lying comfortably flat in bed Neck: No JVD. Lungs: Clear to auscultation bilaterally Heart: Regular rate and rhythm. Normal S1 and S2. No murmurs or rubs appreciated. Abdomen: Soft, nontender, nondistended, bowel sounds present. Extremities: No BLE edema. Neuro: AAOx3. No focal deficits. Results Labs 06/30/23 07:37 Lab results: Cardiac Enzymes 06/29/23 06/30/23 06/30/23 Range/Units 17:54 01:09 07:37 Total Creatine Kinase 54 51 48 (30-223) U/L Lipids 06/30/23 Range/Units 07:37 Triglycerides 381 H (0-149) mg/dL Cholesterol 191 (140-200) mg/dL HDL Cholesterol 31 (23-92) mg/dL Cholesterol/HDL Ratio 6.2 (<5.0) CBC 06/29/23 06/30/23 Range/Units 17:54 07:37 RBC 5.31 5.17 (3.90-5.60) X10E6/uL Hgb 16.0 15.5 (13.0-17.0) g/dL Hct 46.1 45.0 (38.8-50.0) % Plt Count 210 179 (150-450) x10E3/uL Neut # (Auto) 4.0 3.3 (1.8-7.7) x10E3/uL Lymph # (Auto) 2.2 2.4 (1.00-4.8) x10E3/uL Mckinley # (Auto) 0.6 0.7 (0.0-0.8) x10E3/uL Eos # (Auto) 0.2 0.2 (0.0-0.45) x10E3/uL Baso # (Auto) 0.1 0.0 (0.0-0.2) x10E3/uL Intake and Output 06/29/23 06/30/23 06/30/23 23:59 07:59 15:59 Intake Total 600 / 600 0 / 0 Balance 600 / 600 0 / 0 Intake: Oral 600 / 600 0 / 0 Other: # Unmeasured Voids 3 2 Weight 129.6 kg 130 kg Date of Last Bowel Movement 06/28/23 06/30/23 Patient Weight 06/30/23 23:59 Weight 130 kg Lab 06/29/23 06/29/23 06/30/23 17:54 23:38 07:37 PT 11.9 12.3 INR 1.0 1.1 APTT 32.5 35.7 48.1 H A&P - Cardiology (1) NSTEMI (non-ST elevated myocardial infarction): Code(s): I21.4 - Non-ST elevation (NSTEMI) myocardial infarction (2) Hypertension: Code(s): I10 - Essential (primary) hypertension (3) Hypercholesteremia: Code(s): E78.00 - Pure hypercholesterolemia, unspecified Plan Mr. Oswald is a 42 year old male with PMH of HTN, Morbid obesity and HLD who presents as a transfer from [facility] with NSTEMI. Initial troponin was 9.4 and trended up to 285. He was started on Heparin gtt for NSTEMI and transferred to [facility] for further management. While here, troponin trended down to 88-->35-->22. EKG this am showed normal sinus rhythm with subtle inferior Q waves and TWI in lead III. Assessment: NSTEMI HTN HLD Morbid obesity Plan: - Will proceed with [facility] this am to evaluate coronaries. - Continue heparin gtt - ASA, PRN NTG. Start Lipitor 80mg QHS, BB-Toprol 25mg daily. Resume Lisinopril after [facility] - Echocardiogram to evaluate LV function - Aggressive risk factor modifications - Will follow Documented By: Hailey Russell MD 06/30/23 3146 Signed By: <Electronically signed by Hailey Russell MD> 06/30/23 1206 [facility] Work Phone: 1([phone] 400-707801-16-2024 Progress note Author Pillo Avila [facility] June 30, 2023 3:43pm Note Date/Time June 30, 2023 1 1:44am [facility] [address] [place] [address] Hospitalist Progress Note Signed Patient: Adam Oswald MR#: [id number] : 1980 Acct:[id number] Age/Sex: 42 / M Adm Date: 4 Loc: Room: [address] [place] [address] Type: ADM IN Attending Dr: Pillo Avila DO Copies to: ~ Date of Service: 06/30/2023 Subjective Subjective Narrative: Patient seen and examined at bedside. Patient reports an episode of chest pain with radiation to the left arm around 8 AM this morning for which she received nitro with relief of his chest pain. Patient reports shortness of breath duringthe chest pain episode. Denies nausea, vomiting, diaphoresis, abdominal pain. Troponins have been trending downward. Exam Physical Exam Vital Signs: Temp Pulse Resp BP Pulse Ox O2 Del Method 97.9 F 80 16 146/88 H 98 Room Air 06/30/23 07:31 06/30/23 08:17 06/30/23 07:31 06/30/23 08:17 06/30/23 07:31 06/30/23 07:35 Narrative: CONSTITUTIONAL: No apparent distress. Alert, oriented. HEAD: Normocephalic, atraumatic. EYES: Sclera clear. Conjunctiva normal. ENT: External nose normal. No rhinorrhea. NECK: Neck supple. No adenopathy. LUNGS: No distress. Lungs clear bilaterally. Symmetric chest rise. No wheezes, rales or rhonchi. CARDIOVASCULAR: Regular rate and rhythm. No murmurs, rubs or gallops. No leg edema. ABDOMEN: Soft, non-tender, non-distended. Normal bowel sounds. SKIN: Intact. No rash. No trauma. NEUROLOGIC: Cranial nerves grossly intact. No focal neurologic signs. PSYCHIATRIC: Normal affect. Objective Lab Results 06/30/23 07:37 Meds Allergies and Active Meds Allergies No Known Allergies Allergy (Verified 06/29/23 17:28) Active Meds: Active Medications Generic Name Dose Route Start Last Admin Trade Name Rashi PRN Reason Stop Dose Admin Aspirin 81 mg 06/30/23 09:00 06/30/23 08:52 Aspirin 81 Mg Tablet. PO 06/29/24 08:59 81 mg DAILY GELA Administration Atorvastatin Calcium 80 mg 06/30/23 21:00 Atorvastatin 80 Mg Tablet PO 06/29/24 20:59 QPM [facility] Hydralazine HCl 10 mg 06/29/23 18:32 Hydralazine 20 Mg/Ml Vial IV-PUSH 06/28/24 18:31 Q4H PRN SBP > 170 Sodium Chloride 1,000 mls @ 100 mls/hr 06/30/23 11:30 0.9% Sodium Chloride 1,000 Ml IV 06/29/24 11:29 .Q10H [facility] Influenza Virus Vaccine Quadrival 0.5 ml 07/01/23 09:00 Flu Vac Quad (36mon+)Pf 0.5 Ml Syringe [id number] IM 07/01/23 09:01 .ONCE ONE Metoprolol Succinate 25 mg 07/01/23 09:00 Metoprolol Succinate 25 Mg Tab.Er.24h PO 06/30/24 08:59 DAILY [facility] Nitroglycerin 0.4 mg 06/29/23 18:32 06/30/23 08:17 Nitroglycerin 0.4 Mg Tab.Subl SUBLINGUAL 06/28/24 18:31 0.4 mg Q5M PRN Administration Chest Pain Potassium Chloride 40 meq 06/30/23 11:18 Potassium Chloride Er 20 Meq Tab.Er.Prt PO STAT PRN Hypokalemia Sodium Chloride 0 ml 06/30/23 11:18 Sodium Chloride 0.9 % 10 Ml Syringe IV-PUSH 06/29/24 11:17 PRN PRN Flush A&P - Hospitalist Assessment/Plan (1) NSTEMI (non-ST elevated myocardial infarction): Plan Assessment and plan: 1. Non-ST segment elevation myocardial infarction -Patient had an episode of chest pain with shortness of breath around 8 AM this morning for which he received nitro with relief of his chest pain. -Troponin 88.9> 35.7> 22.8 -Continue heparin and aspirin -Hold lisinopril for possible contrast with catheterization -A1c 5.7, triglycerides 381, cholesterol 191, LDL 84 -Cardiology consulted. Appreciate recommendations. 2. Hypertension -Blood pressure elevated, however hold the lisinopril for possible contrast withcatheterization -Hydralazine 10 mg as needed 3. Morbid obesity see discharge summary Documented By: Melissa Rodriguez DO, RES 06/30/23 1 137 Signed By: <Electronically signed by DO LIANNE Rodriguez> 06/30/23 1231 <Electronically signed by Pillo Avila DO> 06/30/23 1543 [facility] Work Phone: 1([phone]) 999-954001-16-2024 Hospital Discharge instructions Additional Instructions DISCHARGE INSTRUCTIONS FOR CARDIAC TRAINING TECHNICIAN PHONE NUMBER OF YOUR PHYSICIAN: [phone] PROCEDURE: Heart Cath The following instructions have been prepared to help you care for yourself, or be cared for upon your return home. 1. You were given conscious sedation. Do not operate a vehicle, power tools, make important decisions, or drink alcohol for 24 hours. You might be drowsy or light headed. Return to the Emergency Room if you have trouble breathing, walking or nausea and vomiting. 2. FOR BLEEDING: Apply continuous pressure to the site and call 911. 3. Operative Site Care: Keep the dressing clean and dry. You may change the dressing only if soiled or wet. You may remove the dressing the following morning. You may wash over the puncture site in the shower. If the puncture site is at the wrist no soaking for 3 days. Some bruising or slight swelling may be present. -Signs of infection are redness, warmth, swelling, getting more sore, colored drainage, fever or chills. -Should the arm or leg become cold, numb, blue or white, call the metal stamping machine operator immediately. 4. ACTIVITY: You are advised to go directly home from the hospital. Restrict your activities for the rest of the day. Resume light or normal activities tomorrow. Do not engage in any activity that will stress the puncture site. Avoid heavy lifting (over 15 lbs.), straining or bending at the catheter site for 48 hours after discharge. If the puncture site is at the wrist do not manipulate wrist for 24 hours and no lifting more than 3 lbs for 3 days. 5. DIET:You may eat your regular diet when you desire. 6. MEDICATIONS: Resume your daily prescription schedule. Prescriptions may be sent with you if needed. Use as directed. When taking pain medications, you may experience dizziness or drowsiness. Do not drink alcohol or drive when taking pain medications. 7. If you should experience episodes of angina e.g. chest discomfort, heaviness, tightness, pressure, burning, with or without radiation to the neck, jaws, arms, or back- Use 1 Nitrostat under your tongue every 5-10 minutes, and up to 3 tablets. If no relief- Call 911 and go to the nearest Emergency Room. -Notify the office for recurrent angina, chest pain or other concerns. You may NOT drive yourself home! Follow the medication instructions provided on your discharge. If the dosages and instructions on this sheet differ from the dosage and instructions on the bottle, follow the instructions on the bottle. [facility] is not responsible for incorrect prescription information provided by the patient during their visit. Do not stop your medications without consulting your health care provider. Please take the list with you to your next doctor's appointment.[facility] Work Phone: [phone]) 890-557101-15-2024 History and physical note Author Pillo Avila [facility] June 29, 2023 6:32pm Note Date/Time June 29, 2023 5 :31pm [facility] [address] [place] [address] Hospitalist H&P Signed Patient: Adam Oswald MR#: [id number] : 1980 Acct:[id number] Age/Sex: 42 / M Adm Date: 4 Loc: 4P Room: [id number] Type: ADM IN Attending Dr: Pillo Avila DO Copies to: MD Pillo Quinn, ~ HPI DATE OF EXAMINATION: 06/29/23 CHIEF COMPLAINT: Chest pain HISTORY OF PRESENT ILLNESS: This patient is a 42-year-old male presented to the emergency department at [facility] earlier today with a chief complaint of chest pain. This occurred quite suddenly when he was active around the house getting ready for his child's basketball game per report. Described as midsternal radiating down the left arm into the left jaw accompanied by ongoing anxiety. This had resolved and then returned again later. He had no associated nausea, shortness of breath, dizziness or syncope. His only prior medical history is hypertensionfor which he takes lisinopril. His vitals on arrival to outside ER were all stable. Initial chest x-ray was normal. 324 milligrams of aspirin was provided. His EKG was reported as unremarkable. His CBC showed no significant abnormalities. Coagulation studies unremarkable including a negative D-dimer. Chemistries were also completely unremarkable including a initial high-sensitivity troponin within normal limits at 9.4 however repeat troponin was significantly elevated at 285.7. The patient was subsequently started on intravenous heparin drip. Subsequently the patient was accepted at [facility] under the hospitalist service with intent to see cardiology for further evaluation and care at [facility]. Notably a third troponin level was obtained and showed a mild downtrend to 252.5. Patient arrives without any complaints. He is resting comfortably watching football during my encounter with him. He reports to me a family history in which his mother had heart attacks and eventual bypass surgery in her early 60s. He has an uncle that had a heart attack in his 40s. He states both of them were smokers. He has had no further chest pain or discomfort since the relatively transient events earlier today. Physical Examination: GENERAL APPEARANCE: Alert, up in bed AAOx3 NECK: Neck soft w/o masses, no JVD CARDIAC: Normal S1 and S2. No S3, S4 or murmurs. LUNGS: Clear to auscultation bilaterally. no wheeze/rhonchi/rales ABDOMEN: Positive bowel sounds. Soft, nontender. No guarding or signs of an acute abdomen MUSCULOSKELETAL: No joint erythema or tenderness. EXTREMITIES: No clubbing, cyanosis or edema PSYCHIATRIC: Appropriate mood and affect Assessment and plan: 1. Non-ST segment elevation myocardial infarction 2. Hypertension 3. Morbid obesity Patient's discomfort was highly suggestive of cardiac etiology especially in light of troponin elevations. His third reading did downtrend which is encouraging. Irregardless we will continue heparin drip overnight and consult cardiology. The patient reports a negative stress test when he was 33 years oldand denies any other recent complaints of chest discomfort. Will check A1c, lipid panel to address any other coronary risk factors. N.p.o. after midnight. Will hold lisinopril for the time being as he could receive contrast with catheterization. As needed nitro for recurrent chest pain. Review of Systems Review of Systems All other systems reviewed & are negative unless noted below or in HPI [facility] Medical History (Updated 06/29/23 @ 18:32 by Pillo Avila DO) Hypercholesteremia Hypertension Social History Smoking Status: Never smoker Meds Medications and Allergies Allergies No Known Allergies Allergy (Verified 06/29/23 17:28) Home Medications lisinopril 10 mg tablet 10 mg PO HS 06/29/23 [History Confirmed 06/29/23] Exam Physical Exam Vital Signs: Temp Pulse Resp BP Pulse Ox O2 Del Method 98 F 80 16 163/99 H 98 Room Air 06/29/23 16:32 06/29/23 16:32 06/29/23 16:32 06/29/23 16:32 06/29/23 16:32 06/29/23 16:44 Assessment & Plan Assessment/Plan (1) NSTEMI (non-ST elevated myocardial infarction): Plan as above IP vs OBS Justification Based on differential dx, clinical care plan, and risk of adverse events, if untreated, in my clinical judgement this patient requires an acute care setting as: INPATIENT because of an expectation of an over 2 midnight stay. Estimated length of stay (# of days): 3 Documented By: Pillo Avila DO 06/29/23 17 Signed By: <Electronically signed by Pillo Avila DO> 06/29/23 1832 [facility] Work Phone: 1([phone]) 164-616209-07-2023 Evaluation note* Encounter Date Diagnosis Assessment Notes Treatment Notes Treatment Clinical Notes Feb, Pain in right knee (ICD-10 - M25.561) Feb, Primary osteoarthritis of right knee (ICD-10 - M17.11) The patient is suffering from degenerative arthritis involving the knee. We discussed the conservative treatment options which can be beneficial in relieving pain, including gentle non-impact motion exercise and non-steroidal anti-inflammatory medication. We discussed the use of occasional cortisone injections that can provide pain relief as well as hyaluronan lubricant injection. We performed a 1/1cc marcaine / kenalog cortisone injection into the knee joint under sterile technique. Patient tolerated the injection well without adverse reaction. Discussed total knee arthroplasty with one of the partners if pain persists and conservative treatment is no longer helpful. [facility] Other 02-08-2023 Evaluation note* Encounter Date Diagnosis Assessment Notes Treatment Notes Treatment Clinical Notes Jul, Closed bimalleolar fracture of left ankle with routine healing, subsequent encounter (ICD-10 - S82.842D) Adam for follow-up of left ankle. He is doing well. His only complaint some posterior ankle pain. Otherwise he has been increasing activities without issues. He is in normal shoes without his boot today. He is walking without assistance. X-rays reviewed with him. Overall continuing to improve. Activity as tolerated without restrictions. Offered physical therapy he declines. Follow-up as needed The patient has been involved in our cooperative treatment plan and agrees to move forward with treatment at this time. Radiographs reviewed with patient today. Discussed with patient he is progressing well. Instructed patient to continue to work on stretching exercises. Discussed to take NSAIDs on a scheduled basis for 3 weeks to help with the inflammation. Call with any questions or concerns [facility] Other 01-11-2023 Evaluation note* Encounter Date Diagnosis Assessment Notes Treatment Notes Treatment Clinical Notes Jun, Closed bimalleolar fracture of left ankle with routine healing, subsequent encounter (ICD-10 - S82.842D) Adam returns with left bimalleolar ankle fracture with avulsion fracture of both the distal fibula and medial malleolus. At this juncture we have discussed the findings and diagnosis as well as personally reviewed appropriate imaging and performed interpretation of related testing and examination with the patient in office today. Continue boot at this time. Weightbearing as tolerated inside of boot. Okay to remove for range of motion exercises. We will plan to see back in 4 weeks for repeat x-rays and to discontinue boot The patient has been involved in our cooperative treatment plan and agrees to move forward with treatment at this time. Updated radiographs reviewed and discussed in detail with patient. He is progressing well from injury and is healing routinely. Patient advised to work on gentle motion and strengthening exercises and may use ice and elevation for any swelling. Patient may take anti-inflammatory medication as needed for any pain or discomfort. We will keep patient in the CAM walking boot for another 4 weeks. We will follow up in 4 weeks time with updated radiographs. Patient voices understanding and states no further questions. [facility] Other 12-14-2022 Evaluation note* Encounter Date Diagnosis Assessment Notes Treatment Notes Treatment Clinical Notes May, Closed bimalleolar fracture of left ankle, initial encounter (ICD-10 - S82.842A) Adam presents with left bimalleolar ankle fracture with avulsion fracture of both the distal fibula and medial malleolus. At this juncture we have discussed the findings and diagnosis as well as personally reviewed appropriate imaging and performed interpretation of related testing and examination with the patient in office today. Prior medical notes from the [facility] ED and history have been reviewed. At this time I would recommend boot wear with weightbearing inside the boot. We will plan to see him back in 4 weeks for repeat x-rays and recheck.discussed range of motion exercises. Hopefully we can work out of the boot around the 6-week chuy. The patient has been involved in our cooperative treatment plan and agrees to move forward with treatment at this time. The patient has suffered a minimally displaced distal fibula and distal tibia avulsion fractures. This appears to be a stable fracture and we will allow progressive gentle ankle motion as pain allows as well as gentle weight bearing while wearing cam walker boot. We discussed the importance of icing and elevation of the leg above the heart to prevent swelling. 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 May, Other See orders for this visit as documented in the electronic medical record. [facility] Other 12-13-2022 NotePROCEDURE: XR ANKLE LT MIN 3 V HISTORY: Swelling ; left ankle pain, rolled ankle COMPARISON: None. FINDINGS: BONES:Separate ossification adjacent to the medial malleolus with irregular cortical margin suspicious for avulsion fracture. Tiny separate ossification adjacent the lateral malleolus favoring sequela of remote injury. SOFT TISSUES:Marked soft tissue swelling surrounding the ankle. EFFUSION:None visible. OTHER: Negative. IMPRESSION: 1. Suspect acute avulsion fracture from tip of medial malleolus. Sequela of remote injury is felt less likely. 2. Prominent soft tissue swelling. 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 Patient would like to try repeat cortisone injection as previous injection helpful for extensive period of time. 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) [facility] Other Discharge summary Author Pillo Avila [facility] June 30, 2023 3:50pm Note Date/Time June 30, 2023 3 :47pm [facility] [address] [place] [address] Discharge Summary Signed Patient: Adam Oswald MR#: [id number] : 1980 Acct:[id number] Age/Sex: 42 / M Adm Date: 4 Loc: Room: [address] [place] [address]: Pillo Avila DO Copies to: MD Pillo Quinn, DO~ Providers Date of Discharge: 06/30/23 Discharging Provider: Pillo Avila Primary Care Provider: Benigno Coats Consults: 06/29/23 17:25 Consult to Cardiology Routine Discharge Diagnosis Final Diagnosis Final Discharge Diagnosis: 1. Myocardial infarction with nonobstructive coronary arteries 2. Hypertension 3. Morbid obesity 4. Chest pain Summary Hospital Course Hospital course: This patient is a 42-year-old male who presented to outside ER on 06/29/2023 withan acute onset of substernal chest pain radiating to the left arm and left neck region. His vitals were all stable and EKG unremarkable and first troponin was within normal limits at a level of 9. Subsequent repeat troponin did reveal evidence of infarction with significant elevation in the 280s range. Patient received 324 mg of aspirin and was initiated on a heparin drip. He was subsequently transferred to [facility] for further evaluation and cardiology consultation. Patient's symptoms did return once during his stay and were responsive to a dose of sublingual nitroglycerin. His troponins continue to downtrend with therapeutic being at outside facility. Heparin drip was discontinued. He was taken for catheterization on 06/30/2023. Nonobstructive coronary disease was noted however no significant occlusion warranting PCI. 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 Given the contrast load he received he received IV hydration and was monitored postcatheterization on telemetry without issue. He was prescribed dual antiplatelet therapy with daily aspirin and Plavix. High intensity statin was prescribed on discharge in addition to metoprolol. He will continue his lisinopril as previously prescribed. As needed nitroglycerin was also provided. Will follow-up with hisP as well as cardiology as an outpatient. Physical Examination: GENERAL APPEARANCE: Alert, up in bed AAOx3 NECK: Neck soft w/o masses, no JVD CARDIAC: Normal S1 and S2. No S3, S4 or murmurs. LUNGS: Clear to auscultation bilaterally. no wheeze/rhonchi/rales ABDOMEN: Positive bowel sounds. Soft, nontender. No guarding or signs of an acute abdomen MUSCULOSKELETAL: No joint erythema or tenderness. EXTREMITIES: No clubbing, cyanosis or edema PSYCHIATRIC: Appropriate mood and affect 35 minutes were spent coordinating the discharge of this patient. Time Spent with Patient Time spent providing/coordinating discharge services (# min): 35 Surgeries and Procedures Operation Date: 06/30/23 13:00 Actual Procedures p CL [facility] Angio - Jayce Beverly MD Diagnostic Studies Completed and Pending Studies Pending studies at discharge: 06/30/23 08:29 EKG [ECG 12 lead ECG] Routine 06/30/23 17:23 Troponin I High Sensitivity [CHEM] Timed Creatine Kinase [CHEM] Routine Labs on day of discharge: 06/30/23 07:37: PHA Creatinine Clear 136.39, Sodium 138, Potassium 4.1, Chloride 105, Carbon Dioxide 24.6, Anion Gap 12.5, BUN 16, Creatinine 0.95, Est GFR (CKD-EPI) > 60.0 06/30/23 07:37: Estimat Average Glucose 117, Hemoglobin A1c 5.7 H 06/30/23 07:37: Triglycerides 381 H, Cholesterol 191, LDL Cholesterol, Calc 84, VLDL Cholesterol 76, HDL Cholesterol 31, Cholesterol/HDL Ratio 6.2 06/30/23 07:37: Total Creatine Kinase 48, Troponin I High Sens 22.8 H 06/30/23 07:37: PT 12.3, INR 1.1, APTT 48.1 H 06/30/23 07:37: Corrected WBC 6.6, Uncorrected WBC Count 6.6, RBC 5.17, Hgb 15.5, Hct 45.0, MCV 86.9, MCH 30.0, MCHC 34.5, RDW 13.5, Plt Count 179, MPV 9.7, Neut % (Auto) 49.7, Lymph % (Auto) 36.1, Mckinley % (Auto) 10.1, Eos % (Auto) 3.4, Baso % (Auto) 0.7, Nucleat RBC Rel Count 0.3, Neut # (Auto) 3.3, Lymph # (Auto) 2.4, Mckinley # (Auto) 0.7, Eos # (Auto) 0.2, Baso # (Auto) 0.0 06/30/23 01:09: Total Creatine Kinase 51, Troponin I High Sens 35.7 H 06/29/23 23:38: APTT 35.7 06/29/23 17:54: PT 11.9, INR 1.0, APTT 32.5 06/29/23 17:54: Corrected WBC 7.1, Uncorrected WBC Count 7.1, RBC 5.31, Hgb 16.0, Hct 46.1, MCV 86.8, MCH 30.2, MCHC 34.8, RDW 14.0, Plt Count 210, MPV 9.9, Neut % (Auto) 56.4, Lymph % (Auto) 31.3, Mckinley % (Auto) 9.1, Eos % (Auto) 2.2, Baso % (Auto) 1.0, Nucleat RBC Rel Count 0.2, Neut # (Auto) 4.0, Lymph # (Auto) 2.2, Mckinley # (Auto) 0.6, Eos # (Auto) 0.2, Baso # (Auto) 0.1 06/29/23 17:54: Total Creatine Kinase 54, Troponin I High Sens 88.9 H* Exam Physical Exam Vital Signs: Temp Pulse Resp BP Pulse Ox O2 Del Method 97.9 F 77 16 138/84 96 Room Air 06/30/23 07:31 06/30/23 14:35 06/30/23 14:35 06/30/23 14:35 06/30/23 14:35 06/30/23 14:35 Discharge Plan Discharge Plan Patient Disposition: Home Activity: No Activity Restriction Diet: Low-Sodium and Low-Cholesterol Additional Instructions: DISCHARGE INSTRUCTIONS FOR CARDIAC TRAINING TECHNICIAN PHONE NUMBER OF YOUR PHYSICIAN: [phone] PROCEDURE: Heart Cath The following instructions have been prepared to help you care for yourself, or be cared for upon your return home. 1. You were given conscious sedation. Do not operate a vehicle, power tools, make important decisions, or drink alcohol for 24 hours. You might be drowsy or light headed. Return to the Emergency Room if you have trouble breathing, walking or nausea and vomiting. 2. FOR BLEEDING: Apply continuous pressure to the site and call 911. 3. Operative Site Care: Keep the dressing clean and dry. You may change the dressing only if soiled or wet. You may remove the dressing the following morning. You may wash over the puncture site in the shower. If the puncture site is at the wrist no soaking for 3 days. Some bruising or slight swelling may be present. -Signs of infection are redness, warmth, swelling, getting more sore, colored drainage, fever or chills. -Should the arm or leg become cold, numb, blue or white, call the metal stamping machine operator immediately. 4. ACTIVITY: You are advised to go directly home from the hospital. Restrict your activities for the rest of the day. Resume light or normal activities tomorrow. Do not engage in any activity that will stress the puncture site. Avoid heavy lifting (over 15 lbs.), straining or bending at the catheter site for 48 hours after discharge. If the puncture site is at the wrist do not manipulate wrist for 24 hours and no lifting more than 3 lbs for 3 days. 5. DIET:You may eat your regular diet when you desire. 6. MEDICATIONS: Resume your daily prescription schedule. Prescriptions may be sent with you if needed. Use as directed. When taking pain medications, you may experience dizziness or drowsiness. Do not drink alcohol or drive when taking pain medications. 7. If you should experience episodes of angina e.g. chest discomfort, heaviness, tightness, pressure, burning, with or without radiation to the neck, jaws, arms, or back- Use 1 Nitrostat under your tongue every 5-10 minutes, and up to 3 tablets. If no relief- Call 911 and go to the nearest Emergency Room. -Notify the office for recurrent angina, chest pain or other concerns. You may NOT drive yourself home! Follow the medication instructions provided on your discharge. If the dosages and instructions on this sheet differ from the dosage and instructions on the bottle, follow the instructions on the bottle. [facility] is not responsible for incorrect prescription information provided by the patient during their visit. Do not stop your medications without consulting your health care provider. Please take the list with you to your next doctor's appointment. Prescriptions: New atorvastatin 80 mg Tablet 80 mg PO QPM 30 Days Qty: 30 2RF aspirin 81 mg Tablet,Delayed Release (Dr/Ec) 81 mg PO DAILY 30 Days Qty: 30 2RF nitroglycerin 0.4 mg Tablet, Sublingual 0.4 mg sublingual Q5M PRN (Reason: Chest Pain) 30 Days Qty: 25 2RF metoprolol succinate 25 mg Tablet Extended Release 24 Hr 25 mg PO DAILY 30 Days Qty: 30 2RF clopidogrel [Plavix] 75 mg tablet 75 mg PO DAILY 30 Days Qty: 30 2RF Continued lisinopril 10 mg tablet 10 mg PO HS Patient Comments: TAKE 1 TABLET BY MOUTH EVERY DAY Follow Up: Benigno Coats MD [Primary Care Provider] - (You have been scheduled for a follow up appointment for the following date and time, please call to rescheduleif needed.) Hailey Russell MD [Active Staff] - 07/21/23 10:20 am Documented By: Pillo Avila DO 06/30/23 15 43 Signed By: <Electronically signed by Pillo Avila DO> 06/30/23 1550 [facility] Work Phone: Evaluation noteNo assessment information available [facility] Work Phone: Evaluation note* Diagnosis Onset Date Resolution Status Hypercholesteremia acute Hypertension acute NSTEMI (non-ST elevated myocardial infarction) acute [facility] Work Phone: Evaluation noteNo InformationNort Walk-in 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 Other Evaluation note* Diagnosis 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) [facility] Diagnosis 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)- Primary documented in this encounter [facility] general Narrative - Reported* Type Description Date Medical History HISTORY OF DIVERTICULITIS Medical History hypertension Medical History Left ankle fracture Surgical History DIVERTICULITIS [facility] Other History general Narrative - Reported* Type Description Date Medical History HISTORY OF DIVERTICULITIS Medical History hypertension Medical History Left ankle fracture Surgical History DIVERTICULITIS Hospitalization History heart cath [facility] Other Advance Directives No Advanced Directives Records Found Advance Directive Response Recorded Date/ Time Advance Directives No April 17, 2020 11:43am Advance Directive Response Recorded Date/ Time Advance Directives No April 17, 2020 12:43pm Chief Complaint and Reason for Visit Chief Complaint M19.032 S82.842A Chief Complaint M19.032 S82.842A S82.842D Chief Complaint N-stemi Reason for Visit Hypercholesteremia Hypertension NSTEMI (non-ST elevated myocardial infarction) Summary Purpose Family History No Family History Records FoundNo Family History Records FoundNo Family History Records Found Reason for Referral Reason cardiac rehab Diagnosis 1 Myocardial infarctio n with coronary microvascular dysfunction (I21.B) Referral Organization [facility] Referring Provider First Name Hailey Referring Provider Last Name Drew Referring Provider Specialty Cardiovascu lar Disease Referred Organization [facility] Referred Address [address] [place] [address] Referred Provider Specialty Cardiology Referral Priority Routine Clinical Notes F: [id number] Additional Source Comments Care Teams (unrecognized sec tion and content) Team Status: Inactive Member Role Status Dates Eloise Dubois MD Attending Provider Active Team Status: Inactive Member Role Status Dates NON STAFF Primary Care Provider Active Rajeev Gray DO Attending Provider Active Team Status: Inactive Member Role Status Dates Eloise Dubois MD Attending Provider Active NON STAFF Primary Care Provider Active Team Status: Active Member Role Status Dates NON STAFF Primary Care Provider Active Team Status: Inactive Member Role Status Dates Benigno Coats MD Primary Care Provider Active Rajeev A Marina , DO Attending Provider Active Team Status: Inactive Member Role Status Dates Rajeev Gray , Attending Provider Active Benigno Coats MD Primary Care Provider Active Team Status: Active Member Role Status Dates Benigno Coats MD Primary Care Provider Active Team Status: Inactive Member Role Status Dates Benigno Coats MD Primary Care Provider Active Denis Allen MD Attending Provider Active Team Status: Inactive Member Role Status Dates Benigno Coats MD Primary Care Provider Active Pillo Avila , Admit Provider, Attending Provider Active Ita Knight RN Other Provider Active Jayce Beverly MD Other Provider Active Narendra Hassan MD Other Provider Active Hailey Russell MD Other Provider Active [employer] [facility] Relationship Specialty Start Date End Date Benigno Coats MD [address] [place] [address] PCP - General Family Medicine 07/20/23 [employer] [facility] Relationship Specialty Start Date End Date Benigno Coats MD [address] [place] [id number] PCP - General Family Medicine 07/20/23 [employer] Department Relationship Specialty Start Date End Date Benigno Coats MD [address] [place] [id number] PCP - General Family Medicine 07/20/23 Goals (unrecognized section and content) Goals may be documented in a n alternate sectionGoals may be documented in an alternate sectionGoals may be documented in an alternate sectionGoals may be documented in an alternate sectionNo InformationNo InformationNo InformationNo InformationNo InformationGoals may be documented in an alternate sectionNo InformationNo InformationNo InformationNo InformationNo Information (unrecognized sect ion and content) No Status Records FoundNo Status Records FoundNo Status Records Found INFORMATION SOURCE (unrecogn ized section and content) DATE CREATED AUTHOR 06/05/2022 [facility] DATE CREATED AUTHOR AUTHOR'S ORGANIZ ATION 09/05/2023 [facility] DATE CREATED AUTHOR AUTHOR'S ORGANIZ ATION 09/07/2023 [facility] REASON FOR VISIT (unrecogniz ed section and content) Reason Comments Appointment Patient Question Source Comments (unrecognize d section and content) In the event this informatio n is protected by the Federal Confidentiality of Alcohol and Drug Abuse Patient Records regulations: The Federal rules restrict any use of the information to criminally investigate or prosecute any alcohol or drug abuse patient.[facility] the event this information is protected by the Federal Confidentiality of Alcohol and Drug Abuse Patient Records regulations: The Federal rules restrict any use of the information to criminally investigate or prosecute any alcohol or drug abuse patient.[facility] the event this information is protected by the Federal Confidentiality of Alcohol and Drug Abuse Patient Records regulations: The Federal rules restrict any use of the information to criminally investigate or prosecute any alcohol or drug abuse patient.[facility] FOR RECORDS PERTAINING TO PATIENTS WHO ARE OR HAVE BEEN ENROLLED IN A CHEMICAL DEPENDENCY/SUBSTANCEABUSE PROGRAM, SOME INFORMATION MAY BE OMITTED. This clinical summary was aggregated from multiple sources. Caution should be exercised in using it in the provision of clinical care. This summary normalizes information from multiple sources, and as a consequence, information in this document may materially change the coding, format and clinical context of patient data. In addition, data may be omitted in some cases. CLINICAL DECISIONS SHOULD BE BASED ON THE PRIMARY CLINICAL RECORDS. [facility] anchor.travel [facility]. provides no warranty or guarantee of the accuracy or completeness of information in this document.
[2023-10-21 10:40] LABS: Basophils Absolute Auto 0.1 10^3/uL (0.0-0.1); Basophils Percent Auto 0.8 % (0.2-2.0); Eosinophils Absolute Auto 0.2 10^3/uL (0.0-0.7); Hemoglobin 15.7 g/dL (14.0-18.0); Immature Granulocytes Abs Auto 0.03 10^3/uL (0.00-0.03); Immature Granulocytes Pct Auto 0.5 % (0.0-0.5); Lymphocytes Percent Auto 31.6 % (20.5-60.0); Mean Corpuscular HGB Conc 34.1 g/dL (29.9-35.2); Mean Platelet Volume 11.4 fL (9.5-13.5); Monocytes Absolute Auto 0.6 10^3/uL (0.3-0.8); Monocytes Percent Auto 10.2 % (1.7-12.0); Neutrophils Absolute Auto 3.4 10^3/uL (1.4-6.5); Neutrophils Percent Auto 53.9 % (43.0-75.0); Platelet Count 211 10^3/uL (150-450); Red Blood Count 5.41 10^6/uL (4.70-6.10); Red Cell Distribution Width 12.5 % (11.0-15.0); White Blood Count 6.3 10^3/uL (4.0-11.0)
[2023-10-21 11:00] LABS: Estimated Average Glucose 108 mg/dL; Glycohemoglobin A1C 5.4 % (4.5-6.2)
[2023-10-21 11:26] LABS: Alanine Aminotransferase 61 U/L (16-63); Albumin Globulin Ratio 1.3; Albumin Level 3.8 g/dL (3.4-5.0); Alkaline Phosphatase 80 U/L (46-116); Anion Gap 12.8; Aspartate Amino Transferase 23 U/L (15-37); BUN Creatinine Ratio 15.1; Bilirubin Total 0.6 mg/dL (0.2-1.0); Calcium 8.8 mg/dL (8.5-10.1); Carbon Dioxide 27.4 mmol/L (21.0-32.0); Chloride 104 mmol/L (98-107); Chol HDL Ratio 3.4; Cholesterol 130 mg/dL (<=200); Estimated GFR (African America >60 (>=60); Estimated GFR (Non-African Ame >60 (>=60); Free T3 3.61 pg/mL (2.18-3.98); Glucose 103 mg/dL (74-106); HDL Cholesterol 38 mg/dL (40-60); Potassium 4.2 mmol/L (3.5-5.1); Sodium 140 mmol/L (136-145); Thyroid Stimulating Hormone 1.539 uIU/mL (0.358-3.740); Total Protein 6.8 g/dL (6.4-8.2); Triglycerides 137 mg/dL (<=150); VLDL CHOLESTEROL 27.4 mg/dL
[2023-10-21 12:03] LABS: Prostate Specific Antigen Scrn 0.63 ng/mL (<=4.00)
== END 2023-10-21 10:16 | disposition home or self-care (01) ==
LOC: LAB 10:16
PROVIDERS: PCP Family Medicine; Visit Provider Family Medicine
DX: Z00.00 Encounter for general adult medical examination without abnormal findings (principal); I10 Essential (primary) hypertension; I21.9 Acute myocardial infarction, unspecified
CPT/HCPCS: 36415; 80053; 80061; 83036; 84436; 84443; 84481; 85025; G0103